=== PATIENT | male | born 2005 | race Caucasian/White ===

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

== ENCOUNTER 2024-06-09 13:05 | Outpatient (RCR) | payer MEDICAID, SELFPAY ==
--- NOTE | 2024-06-15 09:39 | HMH.SLDYSPHA ---
Speech & Language Evaluation Speech/Language Dysphagia Evaluation Start: 06/15/24 09:29 Freq: ONCE Status: Active Protocol: Document 06/09/24 15:50 JAMES (Rec: 06/15/24 09:39 MSTJORGE Laptop) Dysphagia Assess/Goals/Plan Assessment Date of Evaluation: 06/09/24 Evaluation Type Initial Certification Assessment/Problems dysphagia per MD order Does Patient Qualify for Service Yes Qualify/Failure Comment Based on clinical observations made throughout assessment and caregiver interview, Shara would benefit from skilled speech therapy services to address motor speech and language deficits in order to effectively communicate his thoughts and ideas across multiple settings and environments. Mastication /manipulation of bolus and swallowing appear to be WFL. Recommendations PHYSICIAN CERTIFICATION: The specified therapy services are required, authorized, and reviewed every 30 days. Pt will be seen # times/week 1 for # weeks 12 Diet Recommendations Normal Liquid Type Recommendations Normal/Thin SL Swallow Guidelines Alt bite w/sip thru meal, Standard Aspiration Prec.,Eat at slow rate Dysphagia Swallow Precautions/Strategies Sitting Upright (90 deg),Small Bites and Sips,Alternate Liquids/Solids Additional Consults Recommended Other Comment Pt would benefit from GI consult 2' globus sensation reports and ENT 2' mother reporting throat swelling/ discomfort. Plan Anticipate reaching STG in # weeks 8 Anticipate reaching LTG in # weeks 12 Pt/Guardian verbally ack understanding Yes of dx/prognosis/goals G -code Required No STG-Other Comment/Non-Specific Pt will complete further evaluation to assess expressive/receptive language and motor speech skills. Education Instructions provided ORTHOTIC AIDE discussed evaluation results and need for further assessment, as well as POC with pt and CG both of which expressed understanding. Pt/Caregiver able to recall information Able to recall/restate Reinforcement needed No Speech & Language HPI History Present Illness Description of Patient Problem Mother accompanied pt and provided limited hx. She reports pt has no primary means of communication aside from her at this time. He previously received speech therapy services in the school system, but no device had been given. Hearing Hearing Ability Use of Hearing Aid Vision Visual Difficulty Impaired Language [place] Lang/Spoken in Home Mont[place]grin General Information General Current Food Consistancy Regular,Thin Liquids Dentition Good Dentition Oxygen Status Room Air Ability to Follow Directions Good Communication Ability Moderate Impairment Dysphagia:Food Presentation Evaluation Food Type Pureed,Mechanical Soft,Regular ,Liquid,Pudding,Other Dysphagia Evaluation Summary ORTHOTIC AIDE presented following foods: thin water, pudding, applesauce, mahnaz cracker, nutrigrain bar, soft baked cookie, hamburger kenneth, broccoli casserole, roll, and diced sweet potato. He was able to trial all presented food items and demonstrated adequate mastication/ manipulation of bolus across all consistencies. No overt s/ sxs of aspiration were noted. Pt is observed to require further assessment of motor speech skills and language skills 2' presentation observed in the clinical setting and his limited verbal output. Mother reports he is dependent on her often to communicate his wants/needs. Stroke Dysphagia Assessment PHYSICIAN CERTIFICATION: I certify the specified therapy services for Marielos Ansari are required, authorized, and reviewed every 30 days.
== END 2024-06-09 23:59 | disposition home or self-care (01) ==
LOC: ST 13:05
PROVIDERS: Visit Provider Nurse Practitioner Family
DX: R13.10 Dysphagia, unspecified (principal)
CPT/HCPCS: 92610

== ENCOUNTER 2024-11-01 16:24 | Emergency (ER) | payer MEDICAID, SELFPAY ==
[2024-11-01 16:34] VITALS: BP 116/69; PULSE 78; RESP 16; TEMP 37.6; O2SAT 100; BMI 21.2
[2024-11-01 16:45] LABS: Coronavirus 19, PCR Not Detected (NotDetected); Influenza B, PCR Not Detected (NotDetected)
[2024-11-01 16:56] LABS: Strep Scrn Group A (Rapid) Negative (Negative)
[2024-11-01 17:18] LABS: Influenza A, PCR Detected (NotDetected)
[2024-11-01 17:26] VITALS: BP 114/75; PULSE 85; RESP 18; TEMP 37.9; O2SAT 98
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
[2024-11-01] MEDS: DEXAMETHASONE 4MG/ML 1ML VIAL 10 MG IM (17:53)
[2024-11-01 17:54] VITALS: BP 108/57; PULSE 99; RESP 20; TEMP 37.7; O2SAT 94
== END 2024-11-01 17:55 | disposition home or self-care (01) ==
PROVIDERS: Emergency Provider Emergency Medicine; PCP Family Medicine
DX: J11.1 Influenza due to unidentified influenza virus with other respiratory manifestations (principal); R07.9 Chest pain, unspecified; R05.9 Cough, unspecified; Z20.828 Contact with and (suspected) exposure to other viral communicable diseases
CPT/HCPCS: 87430; 87636; 96372; 99283; J1100

== ENCOUNTER 2025-03-18 11:45 | Outpatient (CLI) | payer MEDICAID, SELFPAY ==
--- OUTSIDE RECORDS SUMMARY | 2004-07-25 01:00 | XMS_ITS | Encounter Summary ---
Author Organization [facility] Address [address] [place] [address] Care Team Providers Care Grocery Specialist Name Role Phone Unavailable Primary Care Provider Unavailabl e Encounter Details Date Type Department Care Team (Late st Contact Info) Description 2004 Hospital Encounter [facility] Division of Cardiology [address] [place] [phone] Social History Tobacco Use Types Packs/Day Years Used Date Smoking Tobacco: Never Smokeless Tobacco: Never Intimate Partner Violence Answer Date R ecorded If you are in a relationship , do you feel safe in that relationship? Yes 12/04/2024 If you are in a relationship , do you feel safe in that relationship? No 12/04/2024 Financial Resource Strain Answer Date R ecorded Financial benefits problems Not on file 09/2022 Trouble paying for things you need Not on file 12/25/2022 Trouble paying for things you need (Other) Not o n file 12/25/2022 Safety and Environment Answer Date Kehinde rded Do you have any concerns of physical abuse, sexual abuse, or neglect of your child? No 12/04/2024 Is an adult hurting you or your family? Not on f ile 12/04/2024 Has someone ever touched you in a sexual way that was not ok with you? Not on file 12/04/2024 Is someone hurting your or your family? No 12/04/2024 Historical abuse worry Not on file If you have firearms in the home, are they all in locked storage AND unloaded? Not on file 12/04/2024 Sex and Gender Information Value Date Recorded Sex Assigned at Not on file Legal Sex Male 5:16 AM EST Gender Identity Not on file Sexual Orientation Not on file documented as of this encounter Procedure Notes * Edt, Audit [place] - 02/05/2011 10:14 AM EDT documented in this encounter Miscellaneous Notes * Results - Edt, Audit [place] - 02/05/2011 10:15 AM EDT * Growth Charts - Edt, Audit [place] - 02/05/2011 10:14 AM EDT * Consent Other - Edt, Audit [place] - 02/05/2011 10:11 AM EDT documented in this encounter Plan of Treatment Upcoming Encounters Date Type Department Care Team (Late st Contact Info) Description 03/31/2025 10:00 AM EDT Appointment [facility] Division of Audiology [address] [place] [phone] Audiology, [facility] Tania Escobar, Kayden Discharge Disposition: Home or Self Care documented as of this encounter Visit Diagnoses Not on filedocumented in this encounter Additional Health Concerns Infection Onset Date Last Indicated Resolved Time COVID-19 Rule Out 02/14/2021 02/14/2021 02/14/2021 11:41 AM EDT documented as of this encounter
--- OUTSIDE RECORDS SUMMARY | 2004-07-25 01:00 | XMS_ITS | Encounter Summary ---
Author Organization [facility] Address [address] [place] [address] Care Team Providers Care Night Warehouse Manager Name Role Phone Unavailable Primary Care Provider Unavailabl e Encounter Details Date Type Department Care Team (Late st Contact Info) Description 2004 Hospital Encounter [facility] Division of Pediatric Surgery [address] [place] [phone] Social History Tobacco Use Types Packs/Day [...] on file documented as of this encounter Consult Notes * Edt, Audit [place] - 02/04/2011 3:00 PM EDT documented in this encounter Miscellaneous Notes * Results - Edt, Audit [place] - 02/05/2011 10:13 AM EDT * Consent Other - Edt, Audit [place] - 02/05/2011 10:11 AM EDT documented in this encounter Plan of Treatment Upcoming Encounters Date Type Department Care Team (Late st Contact Info) Description 03/31/2025 10:00 AM EDT Appointment [facility] Division of Audiology [address] [place] [phone] Audiology, [facility] Tania Escobar, Kayden Discharge Disposition: Home or Self Care documented as of this encounter Visit Diagnoses Not on filedocumented in this encounter Additional Health Concerns Infection Onset Date Last Indicated Resolved Time COVID-19 Rule Out 02/14/2021 02/14/2021 02/14/2021 11:41 AM EDT documented as of this encounter
--- OUTSIDE RECORDS SUMMARY | 2004-09-28 01:00 | XMS_ITS | Encounter Summary ---
Author Organization [facility] Address [address] [place] [address] Care Team Providers Care Bearing Machine Operator Name Role Phone Unavailable Primary Care Provider Unavailabl e Encounter Details Date Type Department Care Team (Late st Contact Info) Description 2004 Hospital Encounter [facility] [place] Division of Neurology [address] [place] [phone] Social History Tobacco Use Types Packs/Day Years [...] on file documented as of this encounter Miscellaneous Notes * Growth Charts - Edt, Audit [place] - 2004 11:30 AM EST * PHOTO - Edt, Audit [place] - 2004 10:29 AM EST documented in this encounter Plan of Treatment Upcoming Encounters Date Type Department Care Team (Late st Contact Info) Description 03/31/2025 10:00 AM EDT Appointment [facility] [place] Division of Audiology [address] [place] [phone] Audiology, [facility] Tania Escobar, Kayden Discharge Disposition: Home or Self Care documented as of this encounter Visit Diagnoses Not on filedocumented in this encounter Additional Health Concerns Infection Onset Date Last Indicated Resolved Time COVID-19 Rule Out 02/14/2021 02/14/2021 02/14/2021 11:41 AM EDT documented as of this encounter
--- OUTSIDE RECORDS SUMMARY | 2004-11-02 01:00 | XMS_ITS | Encounter Summary ---
Author Organization [facility] Address [address] [place] [address] Care Team Providers Care Hot Wire Glass Tube Cutter Name Role Phone Unavailable Primary Care Provider Unavailabl e Encounter Details Date Type Department Care Team (Late st Contact Info) Description 2004 Hospital Encounter [facility] Division of Pediatric General and Thoracic Surgery [address] [place] [phone] Social History Tobacco Use Types Packs/Day [...] 12/04/2024 Historical abuse worry Not on file 04/11/202 5 If you have firearms in the home, are they all in locked storage AND unloaded? Not on file 12/04/2024 Sex and Gender Information Value Date Recorded Sex Assigned at Not on file Legal Sex Male 5:16 AM EST Gender Identity Not on file Sexual Orientation Not on file documented as of this encounter Plan of Treatment Upcoming Encounters Date Type Department Care Team (Late st Contact Info) Description 03/31/2025 10:00 AM EDT Appointment [facility] Division of Audiology [address] [place] [phone] Audiology, [facility] Tania Escoabr, Kayden Discharge Disposition: Home or Self Care documented as of this encounter Visit Diagnoses Not on filedocumented in this encounter Additional Health Concerns Infection Onset Date Last Indicated Resolved Time COVID-19 Rule Out 02/14/2021 02/14/2021 02/14/2021 11:41 AM EDT documented as of this encounter
--- OUTSIDE RECORDS SUMMARY | 2004-12-19 | XMS_ITS | Encounter Summary ---
Author Organization [facility] Address [address] [place] [address] Care Team Providers Care Pre Sales Technical Consultant Name Role Phone Unavailable Primary Care Provider Unavailabl e Encounter Details Date Type Department Care Team (Late st Contact Info) Description 2004 Hospital Encounter [facility] Division of Cardiology [address] [place] [phone] Social History Tobacco Use Types Packs/Day [...] EDT Appointment [facility] Division of Audiology [address] [place] [phone] Audiology, [facility] Tania Escobar, Kayden Discharge Disposition: Home or Self Care documented as of this encounter Visit Diagnoses Not on filedocumented in this encounter Additional Health Concerns Infection Onset Date Last Indicated Resolved Time COVID-19 Rule Out 02/14/2021 02/14/2021 02/14/2021 11:41 AM EDT documented as of this encounter
--- OUTSIDE RECORDS SUMMARY | 2005-05-22 | XMS_ITS | Encounter Summary ---
Author Organization [facility] Address [address] [place] [address] Care Team Providers Care Smooth Plater Name Role Phone Unavailable Primary Care Provider Unavailabl e Encounter Details Date Type Department Care Team (Late st Contact Info) Description 05/22/2005 Hospital Encounter [facility] Division of Neurology [address] [place] [phone] Social History Tobacco Use Types Packs/Day [...] Info) Description 03/31/2025 10:00 AM EDT Appointment [facility] Division of Audiology [address] [place] [phone] Audiology, [facility] Tania Escobar, Kayden Discharge Disposition: Home or Self Care documented as of this encounter Visit Diagnoses Not on filedocumented in this encounter Additional Health Concerns Infection Onset Date Last Indicated Resolved Time COVID-19 Rule Out 02/14/2021 02/14/2021 02/14/2021 11:41 AM EDT documented as of this encounter
--- OUTSIDE RECORDS SUMMARY | 2005-06-19 | XMS_ITS | Encounter Summary ---
Author Organization [facility] Address [address] [place] [address] Care Team Providers Care Circulation Assistant Name Role Phone Unavailable Primary Care Provider Unavailabl e Encounter Details Date Type Department Care Team (Late st Contact Info) Description 06/19/2005 Hospital Encounter [facility] Division of Neurology [address] [place] [phone] Social History Tobacco Use Types Packs/Day [...] Info) Description 03/31/2025 10:00 AM EDT Appointment [facility] Division of Audiology [address] [place] [phone] Audiology, [facility] Tania Escobar, Kayden Discharge Disposition: Home or Self Care documented as of this encounter Visit Diagnoses Not on filedocumented in this encounter Additional Health Concerns Infection Onset Date Last Indicated Resolved Time COVID-19 Rule Out 02/14/2021 02/14/2021 02/14/2021 11:41 AM EDT documented as of this encounter
--- OUTSIDE RECORDS SUMMARY | 2005-08-16 01:00 | XMS_ITS | Encounter Summary ---
Author Organization [facility] Address [address] [place] [address] Care Team Providers Care Penciller Name Role Phone Unavailable Primary Care Provider Unavailabl e Encounter Details Date Type Department Care Team (Late st Contact Info) Description 08/16/2005 Hospital Encounter [facility] Department of Radiology [address] [place] [phone] Social History Tobacco Use Types Packs/Day Years [...] Info) Description 03/31/2025 10:00 AM EDT Appointment [facility] Division of Audiology [address] [place] [phone] Audiology, [facility] Tania Escobar, Kayden Discharge Disposition: Home or Self Care documented as of this encounter Visit Diagnoses Not on filedocumented in this encounter Additional Health Concerns Infection Onset Date Last Indicated Resolved Time COVID-19 Rule Out 02/14/2021 02/14/2021 02/14/2021 11:41 AM EDT documented as of this encounter
--- OUTSIDE RECORDS SUMMARY | 2005-09-07 01:00 | XMS_ITS | Encounter Summary ---
Author Organization [facility] Address [address] [place] [address] Care Team Providers Care Plant Taxonomy Teacher Name Role Phone Unavailable Primary Care Provider Unavailabl e Encounter Details Date Type Department Care Team (Late st Contact Info) Description 09/07/2005 Hospital Encounter [facility] Department of Radiology [address] [place] [phone] Social History Tobacco Use Types Packs/Day [...] Info) Description 03/31/2025 10:00 AM EDT Appointment [facility] Division of Audiology [address] [place] [phone] Audiology, [facility] Tania Escobar, Kayden Discharge Disposition: Home or Self Care documented as of this encounter Visit Diagnoses Not on filedocumented in this encounter Additional Health Concerns Infection Onset Date Last Indicated Resolved Time COVID-19 Rule Out 02/14/2021 02/14/2021 02/14/2021 11:41 AM EDT documented as of this encounter
--- OUTSIDE RECORDS SUMMARY | 2005-09-27 01:00 | XMS_ITS | Encounter Summary ---
Author Organization [facility] Address [address] [place] [address] Care Team Providers Care Senior Treasury Consultant Name Role Phone Unavailable Primary Care Provider Unavailabl e Encounter Details Date Type Department Care Team (Late st Contact Info) Description 09/27/2005 Hospital Encounter [facility] Department of Radiology [address] [place] [phone] Social History Tobacco Use Types Packs/Day [...] 03/31/2025 10:00 AM EDT Appointment [facility] Division of Audiology [address] [place] [phone] Audiology, [facility] Tania Escobar, Kayden Discharge Disposition: Home or Self Care documented as of this encounter Visit Diagnoses Not on filedocumented in this encounter Additional Health Concerns Infection Onset Date Last Indicated Resolved Time COVID-19 Rule Out 02/14/2021 02/14/2021 02/14/2021 11:41 AM EDT documented as of this encounter
--- OUTSIDE RECORDS SUMMARY | 2006-01-08 | XMS_ITS | Encounter Summary ---
Author Organization [facility] Address [address] [place] [address] Care Team Providers Care Investor Relations Associate Name Role Phone Unavailable Primary Care Provider Unavailabl e Encounter Details Date Type Department Care Team (Late st Contact Info) Description 01/08/2006 Hospital Encounter [facility] Division of Pediatric Otolaryngology [address] [place] [phone] Social History Tobacco Use Types Packs/Day [...] Info) Description 03/31/2025 10:00 AM EDT Appointment [facility] Division of Audiology [address] [place] [phone] Audiology, [facility] Tania Escobar, Kayden Discharge Disposition: Home or Self Care documented as of this encounter Visit Diagnoses Not on filedocumented in this encounter Additional Health Concerns Infection Onset Date Last Indicated Resolved Time COVID-19 Rule Out 02/14/2021 02/14/2021 02/14/2021 11:41 AM EDT documented as of this encounter
--- OUTSIDE RECORDS SUMMARY | 2006-02-07 | XMS_ITS | Encounter Summary ---
Author Organization [facility] Address [address] [place] [address] Care Team Providers Care Manager Distribution Name Role Phone Unavailable Primary Care Provider Unavailabl e Encounter Details Date Type Department Care Team (Late st Contact Info) Description 02/07/2006 Hospital Encounter [facility] Division of Audiology [address] [place] [phone] Social History Tobacco Use Types Packs/Day [...] Info) Description 03/31/2025 10:00 AM EDT Appointment [facility] Division of Audiology [address] [place] [phone] Audiology, [facility] Tania Escobar, Kayden Discharge Disposition: Home or Self Care documented as of this encounter Visit Diagnoses Not on filedocumented in this encounter Additional Health Concerns Infection Onset Date Last Indicated Resolved Time COVID-19 Rule Out 02/14/2021 02/14/2021 02/14/2021 11:41 AM EDT documented as of this encounter
--- OUTSIDE RECORDS SUMMARY | 2006-02-08 | XMS_ITS | Encounter Summary ---
Author Organization [facility] Address [address] [place] [address] Care Team Providers Care Playground Equipment Erector Name Role Phone Unavailable Primary Care Provider Unavailabl e Encounter Details Date Type Department Care Team (Late st Contact Info) Description 02/08/2006 Hospital Encounter [facility] Division of Pediatric General and Thoracic Surgery [address] [place] [phone] Social History Tobacco Use Types Packs/Day [...] Info) Description 03/31/2025 10:00 AM EDT Appointment [facility] Division of Audiology [address] [place] [phone] Audiology, [facility] Tania Escobar, aKyden Discharge Disposition: Home or Self Care documented as of this encounter Visit Diagnoses Not on filedocumented in this encounter Additional Health Concerns Infection Onset Date Last Indicated Resolved Time COVID-19 Rule Out 02/14/2021 02/14/2021 02/14/2021 11:41 AM EDT documented as of this encounter
--- OUTSIDE RECORDS SUMMARY | 2006-03-11 | XMS_ITS | Encounter Summary ---
Author Organization [facility] Address [address] [place] [address] Care Team Providers Care Dumping Machine Operator Name Role Phone Unavailable Primary Care Provider Unavailabl e Encounter Details Date Type Department Care Team (Late st Contact Info) Description 03/11/2006 Hospital Encounter [facility] Division of Audiology [address] [place] [phone] Social History Tobacco Use Types Packs/Day [...] Description 03/31/2025 10:00 AM EDT Appointment [facility] Division of Audiology [address] [place] [phone] Audiology, [facility] Tania Escobar, Kayden Discharge Disposition: Home or Self Care documented as of this encounter Visit Diagnoses Not on filedocumented in this encounter Additional Health Concerns Infection Onset Date Last Indicated Resolved Time COVID-19 Rule Out 02/14/2021 02/14/2021 02/14/2021 11:41 AM EDT documented as of this encounter
--- OUTSIDE RECORDS SUMMARY | 2006-03-15 | XMS_ITS | Encounter Summary ---
Author Organization [facility] Address [address] [place] [address] Care Team Providers Care Qa Automation Developer Name Role Phone Unavailable Primary Care Provider Unavailabl e Encounter Details Date Type Department Care Team (Late st Contact Info) Description 03/15/2006 Hospital Encounter [facility] Department of Radiology [address] [place] [phone] Social History Tobacco Use Types Packs/Day [...] Info) Description 03/31/2025 10:00 AM EDT Appointment [facility] Division of Audiology [address] [place] [phone] Audiology, [facility] Tania Escobar, Kayden Discharge Disposition: Home or Self Care documented as of this encounter Visit Diagnoses Not on filedocumented in this encounter Additional Health Concerns Infection Onset Date Last Indicated Resolved Time COVID-19 Rule Out 02/14/2021 02/14/2021 02/14/2021 11:41 AM EDT documented as of this encounter
--- OUTSIDE RECORDS SUMMARY | 2006-04-30 | XMS_ITS | Encounter Summary ---
Author Organization [facility] Address [address] [place] [address] Care Team Providers Care Self Pay Representative Name Role Phone Unavailable Primary Care Provider Unavailabl e Encounter Details Date Type Department Care Team (Late st Contact Info) Description 04/30/2006 Hospital Encounter [facility] Division of Pediatric General and Thoracic Surgery [address] [place] [phone] Social History Tobacco Use Types Packs/Day [...] as of this encounter Miscellaneous Notes * Operative Report - Timmy Geronimo M.D. - 04/30/2006 12:09 PM EDTDATE OF OPERATION: 04/30/2006 SURGEON(S): Timmy Geronimo M.D./Joao Coats D.O. PREOPERATIVE DIAGNOSIS: Chronic otitis media with effusion. POSTOPERATIVE DIAGNOSIS: Chronic otitis media with effusion. ANESTHESIA: General via mask. ESTIMATED BLOOD LOSS: None. SPECIMENS: None. COMPLICATIONS: None. DRAINS: None. OPERATION PERFORMED: Bilateral myringotomy with PE tube placement. INDICATIONS: Marielos is a 1-year-old male with a history of chronic otitis media with effusion. He had been seen by Dr. Geronimo in the clinic. He has had persistent effusion in his bilateral middle ear space. After discussion of the risks between the attending surgeon and the parents, it was decided to proceed to the OR for bilateral myringotomy with PE tube placement. Informed consent was obtained. FINDINGS: Bilateral serous middle ear effusion. PROCEDURE: After informed consent, the patient was taken to the operating room and placed in the supine position. General anesthesia was induced after appropriate monitors were placed. The airway was established using a mask airway. Attention was then directed toward the right ear. The ear canal was cleaned under the operating microscope. A radially-oriented myringotomy incision was made in the anterior inferior quadrant. If fluid was present, it was removed. The appropriate grommet PE tube was then placed without difficulty. A similar procedure and findings were noted on the left. Antibiotic drops were placed if fluid or bleeding was present. The patient tolerated the procedure well. There were no complications. The blood loss was minimal. Fluids during the case were minimal. Timmy Geronimo MD Signed via Electronic Authentication by: Timmy Geronimo MD 05/06/2006 14:06 JAVIER/lisa Terrell: 04/30/2006 12:09 P A Doc #[id number] cc: Timmy Geronimo MD *Joao Diaz D.O. [address] [place], [place] [id number] documented in this encounter Plan of Treatment Upcoming Encounters Date Type Department Care Team (Late st Contact Info) Description 03/31/2025 10:00 AM EDT Appointment [facility] Division of Audiology [address] [place] [phone] Audiology, [facility] Tania Escobar AuD Discharge Disposition: Home or Self Care documented as of this encounter Visit Diagnoses Not on filedocumented in this encounter Additional Health Concerns Infection Onset Date Last Indicated Resolved Time COVID-19 Rule Out 02/14/2021 02/14/2021 02/14/2021 11:41 AM EDT documented as of this encounter
--- OUTSIDE RECORDS SUMMARY | 2006-06-18 | XMS_ITS | Encounter Summary ---
Author Organization [facility] Address [address] [place] [address] Care Team Providers Care Quality Assurance Assistant Name Role Phone Unavailable Primary Care Provider Unavailabl e Encounter Details Date Type Department Care Team (Late st Contact Info) Description 06/18/2006 Hospital Encounter [facility] Division of Pediatric Otolaryngology [address] [place] [phone] Social History Tobacco Use Types Packs/Day [...] Info) Description 03/31/2025 10:00 AM EDT Appointment [facility] Division of Audiology [address] [place] [phone] Audiology, [facility] Tania Escobar, Kayden Discharge Disposition: Home or Self Care documented as of this encounter Visit Diagnoses Not on filedocumented in this encounter Additional Health Concerns Infection Onset Date Last Indicated Resolved Time COVID-19 Rule Out 02/14/2021 02/14/2021 02/14/2021 11:41 AM EDT documented as of this encounter
--- OUTSIDE RECORDS SUMMARY | 2007-05-23 | XMS_ITS | Encounter Summary ---
Author Organization [facility] Address [address] [place] [id number] Care Team Providers Care Digital Cartographic Technician Name Role Phone Unavailable Primary Care Provider Unavailabl e Encounter Details Date Type Department Care Team (Late st Contact Info) Description 05/23/2007 Hospital Encounter [facility] Division of Pediatric Otolaryngology [address] [place] [phone] Social History Tobacco Use Types Packs/Day [...] 03/31/2025 10:00 AM EDT Appointment [facility] Division of Audiology [address] [place] [phone] Audiology, [facility] Tania Escobar, Kayden Discharge Disposition: Home or Self Care documented as of this encounter Visit Diagnoses Not on filedocumented in this encounter Additional Health Concerns Infection Onset Date Last Indicated Resolved Time COVID-19 Rule Out 02/14/2021 02/14/2021 02/14/2021 11:41 AM EDT documented as of this encounter
--- OUTSIDE RECORDS SUMMARY | 2025-02-09 08:15 | XMS_ITS | Encounter Summary ---
Author Organization [facility] Address [address] [place] [address] Care Team Providers Care Lighting Engineer Name Role Phone Rock Bustos M.D. Primary Care Provider [phone] Reason for Visit * Reason Comments AT AAC Evaluation Encounter Details Date Type Department Care Team (Late st Contact Info) Description 02/09/2025 8:15 AM EDT Therapy Visit [facility] [address] [place] [id number] Daniela Matos M.D. [facility] [address] [place] [address] [place] [phone] Natalie Hamlin OTR/L AT [facility] Evaluation Discharge Disposition: Home or Self Care Social History Tobacco Use Types Packs/Day Years [...] on file documented as of this encounter Progress Notes * Natalie Hamlin, OTR/L - 02/09/2025 8:15 AM EDT OT Plan of Care [facility] therapy services plan of care is developed in coordination with the International Classification of Functioning, Disability and Health (ICF) framework, including: Body Structure & Function: Strengthen body and mind to build capacity for maximum participation Participation: Develop competencies required to engage in meaningful activities and interactions with family and peers at home, at school and in the community Environment: Optimize access to play, education, community and family life through adaptations and technology Goal Area: positioning equipment & access Start Date Status Date Met NICOLE Olmedo will participate in AAC trials as needed to determine optimal setup, vision support, and access for AAC strategies/device to meet basic communication needs. 02/09/25 Shara moved his face close to the Via Pro and occasionally moved his glasses out of the way. STG - STG - STG - STG - Goal Area: sensory STG - STG - STG - STG - STG - Goal Area: self-help (ADL's, feeding, socialization) STG - STG - STG - STG - STG - Goal Area: caregiver education NICOLE Olmedo's caregiver will be educated on features, language program, editing, and use of SGDs during trials, as needed to determine final SGD recommendations. 02/09/25 Shara's mother feels he should have a wheelchair mount though he does not currently have awheelchair. STG - STG - STG - STG - OCCUPATIONAL THERAPY EVALUATION Date of Assessment: 02/09/2025 Service: individual 75 minutes and total treatment time 75 minutes Treatment Type: Occupational Therapy evaluation Treatment Diagnoses: ICD-10-CM 1. Impaired mobility and ADLs Z74.09 Z78.9 2. Fine motor delay F82 PATIENT HISTORY AND OCCUPATIONAL PROFILE Shara is a 19 y.o. male who is referred for occupational therapy services to evaluate for abilities as they relate to functional communication and use of a communication system. He attended the evaluation with his mother who provided pertinent information and medical history. Patient's mother reported concerns with performance and participation in the following areas of occupation: access to communication. Medical History: Shara's medical history was reviewed via chart review and caregiver interview. See medical recordsfor full review. No history on file. 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, pt was smaller of the two Unspecified hearing loss Past Surgical History: Procedure Laterality Date HX EAR EXAM UNDER ANESTHESIA (EUA) Bilateral 02/14/2021 with cerumen debridement ABR Bilateral 02/14/2021 HX DENTAL REHABILITATION 1 N/A 02/14/2021 HX EAR EXAM UNDER ANESTHESIA (EUA) Bilateral 04/13/2016 ABR Bilateral 04/13/2016 TONSILLECTOMY AND ADENOIDECTOMY N/A 04/12/2011 HX TYMPANOMASTOIDECTOMY Left 03/26/2008 WITH MUSCULAR RECONSTRUCTION AND FASCIA GRAFT HX EAR EXAM UNDER ANESTHESIA (EUA) Right 03/26/2008 WITH PAPER PATCH HX HERNIA INGUINAL REPAIR Allergies: Penicillin g benzathine [bicillin l-a] Medications: Shara has a current medication list which includes the following prescription(s): acetaminophen, albuterol, ferrous sulfate, pediatric multivitamins-fl, and see information below regarding this order. Current Medical Team: Rehab, Neurology, ENT, Audiology School and Therapy History (Type, Name, Frequency): OT: none PT: none WIND FIELD SERVICE MANAGER: none School, Grade, Investigations Chief: Graduated from high school, volunteers Environment and Psychosocial: Lives in: 1 story house Lives with: mother and twin brother Other info: father comes in town from working occasionally Play and Interests: Raises chickens, plans give aways for kids and other people Equipment: Shara arrived to the [facility] transport chair. Equipment Vendor: [employer] Equipment Therapists: Jeremy Wheelchairs, Strollers, and Transport Chairs: Type of Wheelchair(s) Age of Wheelchair Upcoming Changes to the Wheelchair or Seating Places Used Times/Days Used None- in need Are there upcoming surgeries or other events that will change how or what wheelchair or seating they use? No. Needs a wheelchair Home Positioning Equipment: Type/Name of Equipment Times/Days Used Comments Uses a rolling chair around the house Consider a table or floor mount if they don't use their wheelchair much at home, or use multiple things throughout the day. Any equipment needs identified: yes -- power wheelchair, bath chair, bed [place] to be considered during trials: Clamp-on mount - frame to be determined Assistive Technology (Current/Previous): Augmentative Communication: has had a Proslate in the past Computer Access: has an android phone. Mom is not sure what he does on it but finds that he plays [employer] and goes on [employer] Other: ASSESSMENT OF OCCUPATIONAL PERFORMANCE Appearance/Behavior; Tolerance to Visit: good Signs of Distress: no Motor Function (range of motion, tone, active movement): Motor function (range of motion, tone active motion) Shara presents with abnormal muscle tone, though he is able to participate in a lot of functional activities. Range of motion in both upper extremities is decreased. Shara demonstrates left hand dominance, but demonstrated targeted reaching with both of his upper extremities upper extremities. Hewas able to isolate either index finger as needed for access of small cells or buttons on all SGD???s trialed. His range of motion and strength was functional to access targets in all quadrants on the SGD???s trialed, and to consistently activate desired cells. When using 11 size screen on a SGD, he was able to access with an isolated index finger with good accuracy. He was able to accurately and efficiently access targets as small as 1/2 inch square in size, from a field of 64 to as many as 64 buttons per page on small screen SGD???s trialed. Mobility Status Marielos Olmedo Cotyoralia Olmedo ambulates with difficulty and requires a wheelchair for most distances. Due to difficulties with getting proper referrals, Shara's previous power wheelchair didnot get delivered to him and eventually was returned. He doesn't currently have a manual or power wheelchair and gets around with transport chairs when at the hospital, Jill's carts when at the store and a rolling chair at home. He uses a cane for some of his mobility. Integration of Mobility and Positioning with the SGD Due to Shara???s dependence on a wheelchair for his primary positioning and mobility, he requires a wheelchair mount for stable and consistent positioning of the recommended speech generating device, in order to provide optimal setup, for best visual and physical access to communication across allenvironments. Motor Function Tone: dystonia Range of Motion: decreased active range of motion in his upper bilateral extremities with moderate deficits in functionality Strength: impaired motor control and general weakness Hand Use: left handed Posture and Positioning Type of Seating: adult-size chair Amount of Positioning Support Needed: minimal support for access Mobility Status Mobility: utilizes with a cane for mobility around the environment [place] for Mobility: independently drives a power wheelchair and needs assistance to walk AAC Transport/Set Up: unable to carry objects and needs access to mounting Access Method: Direct Select Direct select was determined to be the most appropriate access method for Shara due to independentaccess without external support. With the following set up, Shara was successful to use an SGD forfunctional communication. Size of Screen: tbd Justification for Screen Size: tbd Button Size: tbd Field Size: TBD Accessibility of Screen: functional movement to access all quadrants Visual Ability: Shara has a history of visual acuity within functional limits with corrective lenses per caregiver report. He was seen previously for ophthalmology needs. Shara reportedly has astigmatism for which he has glasses prescribed. He does tolerate wearing his glasses often. His last known vision screening was 01/2025. Shara's caregiver note any significant concerns with vision as it relates to his participation in functional daily activities. Last vision exam: .January 2025 at [facility] Diagnoses: Astigmatism Glasses: yes, received new glasses 02/08/25 Functional Vision: functional for most daily activities Sensory Hearing: wears hearing aids on both sides Sensory Processing: no difficulties noted Activities of Daily Living (ADLs): Amount of Assistance need for: Dressing: needs assistance Feeding: feeds himself regular diet Toileting: urinates in the toilet, starting to change himself Bathing/Hygeine: stands holding a bar while mom showers him Sleep: sleeps with cushions to elevate his head Communication: Current communication strategies used include: signs and gestures. Current communication needs include: more access to communication with more partners. Fine Motor: Skills: limited due to muscle tone. Reaching: functional Grasp: immature patterns Bimanual: brings hands to midline, crosses midline with both hands Writing Skills: Can write his first name Handedness: left Access Assessment: Visit # Device Used Page Set Access Method Dwell Time Pros Cons 1 Via Pro TouchChat WP 64 Direct Had a good sized vocabulary Seemed to have a little trouble finding what he was looking for. CLINICAL DECISION MAKING: Shara is a 19 y.o. male. The primary encounter diagnosis was Impaired mobility and ADLs. A diagnosis of Fine motor delay was also pertinent to this visit. An expanded review of his medical record was performed with patient history significant for relevant co-morbidities of visual deficits and autism that will impact patient's plan of care by impeding their ability to maintain maximal function for condition. During today's evaluation he presented with performance deficits of: Feeding participation limited by muscle tone, coordination, oral motor skills, fine motor function,and access to communication Play/leisure participation limited by muscle tone, balance, posture, fine motor function, and visual skills Social participation limited by oral motor skills and access to communication Communication management participation limited by muscle tone, coordination, oral motor skills, fine motor function, graphomotor function, visual skills, and access to communication The data from today's evaluation was problem-focused, Shara required minimal/moderate modificationof or assistance with tasks, and has several treatment options available to him as indicated below in the recommendation section. Clinical decision making for this evaluation was moderately complex. The extent of Shara's problems currently interferes with his attainment of independence in occupational performance. Without skilled intervention, Shara may be at risk for further decline in occupational performance skills. Summary/Recommendations: Shara is a 19 y.o. male with a diagnosis of Cerebral Palsy (G80.9). His motor difficulties interfere with his interaction within his environment. Continue with scheduled AAC sessions documented in this encounter Plan of Treatment Upcoming Encounters Date Type Department Care Team (Late st Contact Info) Description 03/31/2025 10:00 AM EDT Appointment [facility] Division of Audiology [address] [place] [phone] Audiology, [facility] Tania Escobar AuD Discharge Disposition: Home or Self Care documented as of this encounter Visit Diagnoses Diagnosis Impaired mobility and ADLs- Primary Mechanical problems with limbs Fine motor delay Other specified delay in development documented in this encounter Care Teams Lighting Engineer Relationship Specialty Start Date End Date Rock Bustos M.D. [address], [place] [id number] PCP - General External Family Practice 03/02/16 documented as of this encounter
--- OUTSIDE RECORDS SUMMARY | 2025-02-09 08:15 | XMS_ITS | Encounter Summary ---
Author Organization [facility] Address [address] [place] [address] Care Team Providers Care Insurance Adviser Name Role Phone Rock Bustos M.D. Primary Care Provider [phone] Reason for Visit * Reason Comments AT [facility] Treatment/Trials Encounter Details Date Type Department Care Team (Late st Contact Info) Description 02/09/2025 8:15 AM EDT Therapy Visit [facility] [address] [place] [id number] Daniela Matos M.D. [facility] [address] [place] [address] [address] [place] [address] Paras Holliday CCC-DRIVING TEACHER AT [facility] Treatment/Trials Discharge Disposition: Home or Self Care Social [...] as of this encounter Progress Notes * Paras Holliday, ROSIO-DRIVING TEACHER - 02/09/2025 8:15 AM EDT Patient Name: Marielos Olmedo AT Series Treatment Note-Speech Diagnosis: ICD-10-CM 1. 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 Cerebral palsy, unspecified type G80.9 3. Sensorineural hearing loss, bilateral H90.3 4. Mixed receptive-expressive language disorder F80.2 5. Autism spectrum disorder F84.0 Date of Treatment: 02/09/2025 Service: individual 75 minutes Speech Plan of Care [facility] therapy services plan of care is developed [...] life through adaptations and technology Goal Area: Functional Communication Start Date Status Date Met STG - To determine which AAC system can be used to communicate wants & needs successfully. 02/09/25 STG -To demonstrate ability to take 2-3 successful communicative turns with a conversation partner using an AAC system. 02/09/25 STG- Goal Area: Caregiver Education STG-To make an informed decision on the best AAC system for successful communication 02/09/25 STG- Prognosis: good Progress: See goals above visit Devices Page sets Access method Dwell Time pros cons #1 Via Pro TouchChat WP 60 Direct select Robust vocab Today only used 1 word to communicate-needs practice sentence building #2 #3 #4 Will bring in phone next week-so we can see how he uses it~ Dates Trialed Name of Burton / Page Set Communicative Functions Request Label Answer Ask Social Comment Protest Core Words Misc. / Fringe 02/09/25 Via Pro WP 60 Basic What did you have for breakfast Greetings spelled name on keyboard Next Session: Recommendations: Continue to address Plan of Care for progress toward goals. [facility] SPEECH-LANGUAGE PATHOLOGY EVALUATION Name: Marielos Olmedo Date of Evaluation: 02/08/2025 Date of : 2005 Address: [address] [place] [address] Age: 19years (home) Medical Diagnosis: (G80.9) Cerebral palsy, unspecified type (F84.0) Autism spectrum disorder Referred by: Bola Gomez M.D. DRIVING TEACHER Diagnosis: (R48.8) Other symbolic dysfunctions (primary encounter diagnosis) (F80.2) Mixed receptive-expressive language disorder Licensed DRIVING TEACHER: Paras Holliday MA, [facility]-DRIVING TEACHER Date of Onset: 2005 () Licensed OT: Diagnosis/Prognosis: good Time spent: 90 minutes BACKGROUND INFORMATION Shara is a 19years old male who was seen for an augmentative and alternative communication evaluation (AAC) at the [facility] to evaluate alternative strategies to facilitate communicative independence and to determine candidacy for a speech generating device (SGD). Shara was accompanied throughout the evaluation by his mother. Shara presents with medical diagnosis(es) of cerebral palsy and autism spectrum disorder and speech/language diagnosis(es) of mixed receptive and expressive language disorder and other symbolic dysfunctions. Other significant medical history includes: diagnosis of bilateral sensorineural hearing loss, for which he wears hearing aids. He currently resides at home with his Mother and twin brother.Per parent report, he is currently enrolled in part-time home school education after graduating from [employer] in [place], [place]. Through his current program, Shara does not receivetherapy services. He does not currently receive outpatient therapy services. Shara's primary care p hysician is Rock Bustos M.D. Shara's caregiver reports that he currently communicates via vocalizations, reaching, facial expressions, gestures, signed approximations, yes/no responses, laughing, and crying. At this time, Shara and his caregivers agree that these methods are no longer meeting his expressive communication needs. Shara is demonstrating increased difficulty communicating with familiar and unfamiliar communication partners and may benefit from alternative and augmentative communication to support his communication. COGNITIVE STATUS ASSESSMENT Explain if cognitive status assessment is not warranted N/A. Estimate of developmental and intellectual age or range Amandas developmental and/or intellectual abilities are judged to be impaired when compared to same age peers. Describe method of assessing cognitive status Amandas cognitive status was evaluated via parent/caregiver report, informal assessment measures, clinical observation, performance on tasks presented during evaluation, and review of records. Document consumer???s most recent cognitive assessment (done by DRIVING TEACHER) Amandas cognitive (i.e. attention, memory, problem solving, information processing and executive functioning) and adaptive skills were judged to be mildly delayed as compared to age-matched peers. Regarding memory, Shara demonstrated the ability to recall information presented after a short time delay, recall information after a long time delay, recall location of target items on a SGD, follow complex directions (emerging ability), recognize familiar people, objects and places, participate in routine activities, participate in routines, and repeat a newly learned activity. Regarding problem solving, Shara demonstrated the ability to request help if needed, change communication modes for clarification, and use multi-modal communication. Regarding information processing, Shara rarely required additional time to process information, rarely presented with processing delays, inconsistently was able to complete multi-step directions over a span of time, and occasionally required physical/visual/verbal cues Regarding attention, Shara attended to evaluation tasks for 25 minutes, maintained attention throughout all evaluation tasks, responds to environmental sounds, responds to voices, responds to name, localizes sounds, inspects surroundings, shifts attention from one person/object to another, attendsto speaker, visually attends to objects, and visually attends to pictures. Observed attention is commensurate with family report. Shara demonstrated literacy skills that are delayed. He demonstrated the following: matching letters, identification of name, displays interest in reading activities, turns pages left to right, turns book upright, and attends to pictures when being read to. Based on Shara???s literacy skills, he may require access to a keyboard and text to speech capabilities. Shara demonstrated adequate memory, problem solving, information processing, and attention skills for independent use and management of an appropriate SGD. SENSORY STATUS Explain if sensory status is not warranted N/A. Visual Abilities Shara has a history of visual acuity within functional limits with corrective lenses. His primary caregiver has a history of visual acuity within functional limits with corrective lenses. Informal observation of functional visual performance during the SGD assessment revealed Shara and/or his primary caregiver do not require modifications to use an appropriate SGD effectively and be functional in small group and one to one settings. Auditory Abilities Formal audiologic testing has been completed and a hearing loss was noted. Results revealed the following: moderate-severe bilateral sensorineural hearing loss. Shara is currently receiving new hearing aids, of which Mom reports Shara is a consistent user. Shara's primary caregiver does not havea reported history of hearing impairment. Informal observation of functional listening performance during the SGD assessment revealed that Shara and/or his primary caregiver do not require modifications to use an appropriate SGD effectively and be functional in small group and one to one settings.Shara responded to all auditory input without difficulty and appeared to appropriately discriminate speech and environmental sounds in a quiet listening environment. Informal observation of functional listening performance during the SGD assessment revealed that Shara and his caregiver demonstrate adequate auditory abilities to use an appropriate augmentative communication system effectively. SPEECH, LANGUAGE, AND COMMUNICATION STATUS Specific description of communication disability, including speech diagnosis Shara presents with the following speech/language diagnosis: mixed receptive and expressive language disorder and other symbolic dysfunctions. Shara???s present level of speech and language skills were obtained via informal assessment, caregiver interview, review of records, interactions with the clinician, and computer activities. As the result of his significant speech and language disorder he is largely reliant upon caregivers anticipating his needs. Testing: AAC Genie Evaluation Visual Identification - ability to visually track and identify a single icon Xtra Large 5 FO2 100% Large 4 FO3 100% Large 3 FO4 100% Large 3 FO8 100% Medium 2 FO4 100% Medium 2 FO8 100% Medium 2 FO15 100% Medium 2 FO24 100% Small 1 FO15 100% Small 1 FO32 100% Small 1 FO45 100% ? Visual Discrimination - ability to visually track and discriminate a single icon from other icons Xtra Large 5 FO2 100% Large 4 FO3 100% Large 3 FO4 100% Large 3 FO8 100% Medium 2 FO4 100% Medium 2 FO8 100% Medium 2 FO15 100% Medium 2 FO24 100% Small 1 FO15 100% Small 1 FO32 100% Small 1 FO45 100% ? ? Vocabulary - ability to identify different types of vocabulary items Noun vocabulary 100% Function vocabulary 100% Verb vocabulary 100% Category recognition 100% Word association 100% Adjective vocabulary 90% Language: Kazakh Speech skills and prognosis The structure of Shara???s oral mechanism appeared to be intact and sufficient for speech. Impairments include: none. Control and function of oral structures is judged to be significantly impaired. Impairments include: uncoordinated movements, spasticity, limited vocal or verbal output, difficulty imitating words and phrases, , limited consonant inventory, and limited vowel inventory. Shara's verbal/vocal output is limited to: neutral vowels, occasional whole word verbal approximations via imitation, laughing, and crying. Shara's current means of communication are not sufficient to meet daily functional communication needs. His condition is chronic and stable in nature and his ability to verbally communicate is expected to remain at the present level. Traditional speech and language therapy has been unsuccessful in increasing his verbal abilities toa functional level. Therefore, it is anticipated that natural speech will not be sufficient to meetShara's daily communication needs for the foreseeable future. Language skills: Expressive and Receptive Receptive Language: Shara presents with moderate impairment in receptive language skills. The following receptive language skills were observed or reported: Understands basic concrete commands given within his physical abilities Responds consistently to name Looks at conversational partner during conversation Follows single step directions in structured routines and activities Follows multi-step directions in routines and activities Anticipates some routine turn taking games Responds appropriately to no Visually attends to picture stimuli for an appropriate amount of time Discriminates nouns in pictures Discriminates familiar objects Discriminates verbs in pictures Identifies categories of objects in pictures Comprehends yes/no questions Comprehends choice-making Understands cause/effect Comprehends familiar routines Discriminates familiar people The following receptive language skills were not observed or reported: Understands pronouns Understands negatives in sentences Makes inferences Comprehends wh- questions Overall, Shara???s receptive language skills are judged to be moderately impaired and a relative strength as compared to expressive language skills. Expressive Language: Shara presents with significant impairment in expressive language skills. Shara uses the following communication methods: vocalizations, reaching, facial expressions, gestures, signed approximations, yes/no responses, laughing, and crying. The following expressive language skills were observed orreported: Smiles as someone is speaking Vocalizes to gain attention Imitates words with poor intelligibility Gazes to desired objects Uses signs Uses gestures Indicates yes reponse by nodding and verbal approximation of yeah Indicates no response by facial expression Imitates gestures/signs Imitates actions Expresses feelings Expresses pleasure/displeasure The following expressive language skills were not observed or reported: Produces single words Combines words Vocalizes with mostly vowel sounds. Speaks verbally with poor intelligibility Initiates a conversation with someone Participates in vocal turn-taking Overall, Shara???s expressive language skills are judged to be significantly impaired. Shara???s limited verbal communication prevents him from expressing his wants, needs, and thoughts to others. Given the severity of the communication impairment as described above, Shara is significantly limited in his ability to communicate verbally and requires a reliable AAC system for communication. Social Pragmatic Shara demonstrated use of eye contact, reciprocal smiling, appropriate affect, turn-taking, attention to the speaker, joint attention, gesture use to gain attention, and comprehension of routines. Shara did not demonstrate use of voice to gain attention and differential cries. Communicative acts included greeting, imitating, labeling, requesting, making choices, and answering. Communicative acts did not include calling, rejecting, protesting, initiating routines, performing, denying, describing an event, and predicting. Play Shara demonstrated independent play (i.e., plays by his/her self away from adults), cause and effect (i.e., light toys, pop-up toys, etc), parallel play (plays next to a peer or adult), cooperative play, games and routines (i.e., peek-a-book, kenneth-cake, chasing, sing, dance), functional play (actions with objects; i.e. put phone to ear, push toy car, throw ball), pretend play (i.e., feed baby, pretend to be parent/animal), imitate adult actions (i.e., drive car by steering wheel, water plants, vacuum, type , sweep , etc), reciprocal play (i.e., plays with a peer or adult-rolling a ball back and forth), and symbolic play. Parent Goals Shara's family reported the following priorities regarding improving his communication: Shara's mother reported that she would like him to be able to functionally communicate his wants and needs with family and unfamiliar communication partners. She would like him to be able to use his AAC deviceto communicate effectively with members of the community and more intentionally engage in social interactions. Assistive Technology: AAC devices/equipment/strategies have been previously introduced or used: Shara was engaged in an AAC trial series at the [facility] in 2019, but, per parent report, stopped attending due to the COVID-19 pandemic. He has used a SGD in the past. Shara received a Proslate 10D by [employer] AAC with Touch Chat with Word Power 42 in 2015. Per parent report and review of records, the device was stolen after only 5 months. Shara displays the following skills for use of assistive technology: Cause/Effect and Access Method: direct manual select with index finger. When presented with Touch Chat with Word Power 60, Victor Manueloindependently navigated to play and into sports to select basketball . Mother reported that Shara enjoys going to the park and playing basketball frequently. Additionally, he navigated to want and eat to select a meal for dinner ( sandwich ). documented in this encounter Plan of Treatment Upcoming Encounters Date Type Department Care Team (Late st Contact Info) Description 03/31/2025 10:00 AM EDT Appointment [facility] Division of Audiology [address] [place] [phone] Audiology, [facility] Tania Escobar, AuD Discharge Disposition: Home or Self Care documented as of this encounter Visit Diagnoses Diagnosis Other symbolic dysfunctions- Primary Cerebral palsy, unspecified type Sensorineural hearing loss, bilateral Mixed receptive-expressive language disorder Autism spectrum disorder Autistic disorder, current or active state documented in this encounter Care Teams Insurance Adviser Relationship Specialty Start Date End Date Rock Bustos M.D. [address] [place] [address] PCP - General External Family Practice 03/02/16 documented as of this encounter
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
--- OUTSIDE RECORDS SUMMARY | 2025-02-16 12:45 | XMS_ITS | Encounter Summary ---
Author Organization [facility] Address [address] [place] [address] Care Team Providers Care Scooping Machine Tender Name Role Phone Rock Bustos M.D. Primary Care Provider [phone] Reason for Visit * Reason Comments AT Equipment Evaluation Jeniffer Banda 613 PW C - [employer] Moe KingRaised toilet seat and rails Encounter Details Date Type Department Care Team (Late st Contact Info) Description 02/16/2025 12:45 PM EDT Therapy Visit [facility] [address] [place] [address] Daniela Matos M.D. [facility] [address] [facility] [address] [place] [address] Kasie Hopkins, MOT,OTR/L AT Equipment Evaluation (Jeniffer Solo 613 PWC - [employer] Moe Julian/Raised toilet seat and rails) Discharge Disposition: Home or Self Care Social [...] of this encounter Progress Notes * Kasie Hopkins, CHIN,OTR/L - 02/16/2025 12:45 PM EDT Images from the original note were not included. Name: Marielos Olmedo Date: 02/16/2025 Date of : 2005 Date of Onset: Weight (actual): 48 kg (12/04/2024 10:30 AM) No Data Recorded Medical Diagnosis: ICD-10-CM 1. Other cerebral palsy G80.8 2. Abnormal posture R29.3 3. Muscle weakness M62.81 4. Sensorineural hearing loss, bilateral H90.3 5. Impaired mobility and ADLs Z74.09 Z78.9 6. Impairment of balance R26.89 7. Pre-syncope R55 8. Autism spectrum disorder F84.0 Billing And Accounting Staff Assistant: CHIN Ivory,OTR/L Referring Physician: Virgil Schilling MD Vendor: RAYA Acuña Funding: [facility] SESSION LENGTH: 75 minutes total treatment time VENDOR PRESENT FOR APPOINTMENT: yes Reason for Today's Visit: Shara was accompanied [...] following equipment: Wheelchair: push wheelchair from a [employer] sale - used when they go shopping, go to amusement [place] orout in the community Standing/Gait: none Bathing/Toileting: grab bar Sleep: He had a bed with side rails Transport: none Patient Lift: none Alternative Positioning: lift chair Orthotics/Bracing: needs new ones AAC/ Computer access: in the process of getting one Medical History: Amandas medical history was reviewed via chart review [...] ASSISTIVE TECHNOLOGY ASSESSMENT Measurements A: Hip Width: 12 B: Chest Width: 12 C: Thigh Width: D: Lower Le E: Seat Depth: 18 F: Seat to Axilla: 18 G: Seat to Elbow: H: Seat to Shoulder: 23.5 I: Seat to Top of Head: 33.5 J: Elbow to Hand: Home Environment and Transportation Considerations Shara lives with his mother and his brother. Home is one story, with ramp. The home has a(n) accessible living area. Sarbjit within home is concrete and laminate. Shara's primary bathroom is on the first floor and is a tub/shower combo. Their bedroom is on the first floor and accessible. Family vehicles: Only [place] Current/Medical Physical Status Cognitive Status: cognitive delays [...] Shara's needs. See below for details. Mobility: discussed group 2 PWC, mid wheel vs front wheel Bathing/Toileting: needs armrests and a raised toilet seat Sleep: needs rails, head elevation, and hi lo Transport: needs a car seat to help with postural control Equipment Prescribed Sleep Safe low bed Full electric articulation Multicolored (headboard=orange, footboard=orange, front safety rail=purple, front side panel=yellow, back safety rail=purple, back side rail=yellow, black post color, black trim color) Padding - around windows, pink Plexiglass windows Twin size Wheelchair Jeniffer Solo 613 Iceberg blue matte Joystick on the left side They want to order a wheelchair mount, but it doesn't have a traditional under the seat rail. He does not have the SGD yet so the mount will not be ordered until he receives the wheelchair and SGD. Brainstorming will need to happen to figure out where to mount it. Toilet chair Tall Jacklyn Elevated Toilet Seat The wheelchair can be delivered to the home. Patient and Family Education: Discussed the recommendations from this appointment, including prescribed equipment and process of acquiring new equipment. Mother and patient were provided with name and number of therapist and vendor to call with any questions or concerns. Mother verbalized understanding of the information provided. Plan of Care [facility] [...] be determined to provide independent mobility. 02/09/2025 Met 02/16/2025 Appropriate means of positioning will be determined to provide safe sleep. 02/09/2025 Met 02/16/2025 Appropriate means of positioning will be determined to provide support while toileting. 02/09/2025 Met 02/16/2025 documented in this encounter Plan of Treatment Upcoming Encounters Date Type Department Care Team (Late st Contact Info) Description 03/31/2025 10:00 AM EDT Appointment [facility] Division of Audiology [address] [place] [phone] Audiology, [facility] Tania Escobar, Kayden Discharge Disposition: Home or Self Care documented as of this encounter Visit Diagnoses Diagnosis Other cerebral palsy- Primary Abnormal posture Muscle weakness Muscle weakness (generalized) Sensorineural hearing loss, bilateral Impaired mobility and ADLs Mechanical problems with limbs Impairment of balance Abnormality of gait Pre-syncope Syncope and collapse Autism spectrum disorder Autistic disorder, current or active state documented in this encounter Care Teams Scooping Machine Tender Relationship Specialty Start Date End Date Rock Bustos M.D. [address] [place], [place] [id number] PCP - General External Family Practice 03/02/16 documented as of this encounter
--- OUTSIDE RECORDS SUMMARY | 2025-02-23 14:30 | XMS_ITS | Encounter Summary ---
Author Organization [facility] Address [address] [place] [address] Care Team Providers Care Stain Applicator Name Role Phone Rock Bustos M.D. Primary Care Provider [phone] Reason for Visit * Reason Comments AT [facility] Treatment/Trials Encounter Details Date Type Department Care Team (Late st Contact Info) Description 02/23/2025 2:30 PM EDT Therapy Visit [facility] [address] [place] [phone] Daniela Matos M.D. [facility] [address] [place] [address] [address] [place] [address] Paras Holliday CCC-GOLF PLAYER ASSISTANT AT [facility] Treatment/Trials Discharge Disposition: Home or Self Care [...] this encounter Progress Notes * Paras Holliday, ROSIO-GOLF PLAYER ASSISTANT - 02/23/2025 2:30 PM EDT Patient Name: Marielos Olmedo AT Series Treatment Note-Speech Diagnosis: ICD-10-CM 1. 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 Sensorineural hearing loss, bilateral H90.3 3. Mixed receptive-expressive language disorder F80.2 4. Autism spectrum disorder F84.0 5. Cerebral palsy, unspecified type G80.9 Date of Treatment: 02/23/2025 Service: individual 75 minutes Speech Plan of Care The [facility] therapy services plan of care is developed [...] conversation partner using an AAC system. 02/09/25 A bit hesitant to touch sometimes, looks at me first-gaining confidenceto explore Unable to spell and find some letters STG- Goal Area: Caregiver Education STG-To make an informed decision on the best AAC system for successful communication 02/09/25 Mom prefers to wait in lobby and let Shara trial independently. STG- Prognosis: good Progress: See goals above visit Devices Page sets Access method Dwell Time pros cons #1 Via Pro VoddlerChat WP 60 Direct select Robust vocab Today only used 1 word to communicate-needs practice sentence building #2 Via Pro TouchChat WP 60 Direct Select Good solid vocabulary system. Responds well to aided modeling. Struggled with predictive text- And spelling in general. #3 #4 Will bring in phone next week-so we can see how he uses it~ Dates Trialed Name of Burton / Page Set Communicative Functions Request Label Answer Ask Social Comment Protest Core Words Misc. / Fringe 02/09/25 Via Pro WP 60 Basic What did you have for breakfast Greetings good/bad spelled name on keyboard 02/09 QUILL PICKING MACHINE OPERATOR 60 Activities To watch sports Greetings/partings Descriptions-feelings No + stop I + want Go stop Next Session: Phrase based system Recommendations: Continue to address Plan of Care for progress toward goals. [facility] SPEECH-LANGUAGE PATHOLOGY EVALUATION Name: Marielos Olmedo Date of Evaluation: 02/23/2025 Date of : 2005 Address: [address] [place] [address] Age: 19years (home) Medical Diagnosis: (G80.9) Cerebral palsy, unspecified type (F84.0) Autism spectrum disorder Referred by: Bola Gomez M.D. 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 Through his current program, Shara does not receivetherapy services. He does not currently receive outpatient therapy services. Shara's primary care p leighann is Rock Bustos M.D. Shara's caregiver reports [...] consumer???s most recent cognitive assessment (done by GOLF PLAYER ASSISTANT) Amandas cognitive (i.e. attention, memory, problem solving, [...] Word association 100% Adjective vocabulary 90% Language: Bruneian Speech skills and prognosis The structure of Shara???s oral mechanism appeared to be intact and sufficient for speech. Impairments include: none. Control and function of oral structures is judged to be significantly impaired. Impairments include: uncoordinated movements, spasticity, limited vocal or verbal output, difficulty imitating words and phrases, , limited consonant inventory, and limited vowel inventory. Amandas verbal/vocal output is limited to: neutral vowels, [...] natural speech will not be sufficient to meetAmandas daily communication needs for the foreseeable future. [...] in an AAC trial series at the [facility] in 2019, but, per parent report, stopped attending due to the COVID-19 pandemic. He has used a SGD in the past. Shara received a Proslate 10D by [employer] AAC with Touch Chat with Word Power 42 in 2016. Per parent report and review of records, [...] a meal for dinner ( sandwich ). Description of Social Pragmatic Skills Shara is functionally non-speaking and communicates primarily via vocalizations, reaching, facial expressions, gestures, sign language, yes/no responses, laughing, and crying. Pragmatic language skills are judged to be moderately impaired. Communication intents include: some response to greetings a nd salutations, inconsistent turn taking, choice making, requesting, asking and answering wh- and yes/no questions, initiating communicative interactions, commenting, and clarifying communication breakdowns. Notably, pragmatic skills are further negatively impacted by speech and language deficits. Description of consumer???s use of current SGD, if applicable (Include date current SGD acquired) Shara has not owned or used an SGD. Emotional status as it relates to communication When communicative breakdowns occur, Shara reportedly becomes frustrated, discontinues attempts tocommunicate, and shuts down. It was felt by all parties that he requires alternative means of communication to reduce frustration and establish social closeness with others. State why current communication behaviors prevent communication of basic needs As a result of Victor Manuelo???s significant speech and language disorder, he is unable to verbally express wants and needs with communication partners without the assistance of augmentative and/or alternative communication strategies. Shara???s speaking needs cannot be met using natural communication methods. His ability to meet daily communication needs will benefit from acquisition and use of an appropriate speech generating device. #5 documented in this encounter Plan of Treatment Upcoming Encounters Date Type Department Care Team (Late st Contact Info) Description 03/31/2025 10:00 AM EDT Appointment [facility] Division of Audiology [address] [place] [phone] Audiology, [facility] Tania Escobar, Kayden Discharge Disposition: Home or Self Care documented as of this encounter Visit Diagnoses Diagnosis Other symbolic dysfunctions- Primary Sensorineural hearing loss, bilateral Mixed receptive-expressive language disorder Autism spectrum disorder Autistic disorder, current or active state Cerebral palsy, unspecified type documented in this encounter Care Teams Stain Applicator Relationship Specialty Start Date End Date Rock Bustos M.D. [address] [place] [address] PCP - General External Family Practice 03/02/16 documented as of this encounter
--- OUTSIDE RECORDS SUMMARY | 2025-02-23 14:30 | XMS_ITS | Encounter Summary ---
Author Organization [facility] Address [address] [place] [address] Care Team Providers Care Mail Examiner Name Role Phone Rock Bustos M.D. Primary Care Provider [phone] Reason for Visit * Reason Comments AT [facility] Treatment/Trials Encounter Details Date Type Department Care Team (Late st Contact Info) Description 02/23/2025 2:30 PM EDT Therapy Visit [facility] [address] [place] [phone] Daniela Matos M.D. [facility] [address] [place] [address] [address] [place] [address] Natalie Hamlin, OTR/L AT [facility] Treatment/Trials Discharge Disposition: Home or Self Care [...] Progress Notes * Natalie Hamlin, OTR/L - 02/23/2025 2:30 PM EDT OT Plan of Care [facility] therapy services plan of care is developed [...] & access Start Date Status Date Met STG - Shara will participate in AAC trials as needed to determine optimal setup, vision support, and access for AAC strategies/device to meet basic communication needs. 02/09/25 Shara moved his face close to the Via Pro and occasionally moved his glasses out of the way. He had some difficulty finding what he was instructed to find but he also did not have his hearing aids in. STG - STG - STG - STG - Goal Area: sensory STG - STG - STG - STG - STG - Goal Area: self-help (ADL's, feeding, socialization) STG - STG - STG - STG - STG - Goal Area: caregiver education STG - Shara's caregiver will be educated on features, language program, editing, and use of SGDs during trials, as needed to determine final SGD recommendations. 02/09/25 Shara's mother wants him to get into some kind of day program. STG - STG - STG - STG - OCCUPATIONAL THERAPY TREATMENT AAC Treatment/Trials Date of Treatment: 02/23/2025 Service: individual 75 minutes and total treatment time 75 minutes Treatment Type: Occupational Therapy Treatment Treatment Diagnoses: ICD-10-CM 1. Fine motor delay F82 2. Impaired mobility and ADLs Z74.09 Z78.9 3. Cerebral palsy, unspecified type G80.9 S: Shara is a 19 y.o. male who is referred for occupational therapy treatment for abilities as they relate to functional communication and use of a communication system. He attended the treatment session with his mother who provided pertinent information and history/status. Patient's mother reported he forgot his hearing aids at home. She said he will do better for us if she stays out of the room. O: Devices Attempted, Access Methods/Strategies Trialed, and Comments Visit # Device Used Page Set Access Method Dwell Time Pros Cons 1 Via Explorer.iot WP 64 Renata Had a good sized vocabulary Seemed to have a little trouble finding what he was looking for. 2 Via Pro [employer]t WP 60 Direct Took a while to find what he was looking for but did remember whenhe was shown. A/P: Strategies/Setup trialed this date requires further trials. Next session plan to try 42 location and compare. Try 60 with more adult vocabulary. Continue to address Plan of Care for progress toward goals. OCCUPATIONAL THERAPY EVALUATION Date of Assessment: 02/09/2025 Service: individual 75 minutes and total treatment time 75 minutes Treatment Type: Occupational Therapy evaluation Treatment Diagnoses: ICD-10-CM 1. Fine motor delay F82 2. Impaired mobility and ADLs Z74.09 Z78.9 3. Cerebral palsy, unspecified type G80.9 PATIENT HISTORY AND OCCUPATIONAL PROFILE Shara is [...] (Type, Name, Frequency): OT: none PT: none DEVOPS CONSULTANT: none School, Grade, Travel Director: Graduated from high school, volunteers Environment and Psychosocial: Lives in: 1 story house Lives with: mother and twin brother Other info: father comes in town from working occasionally Play and Interests: Raises chickens, plans give aways for kids and other people Equipment: Shara arrived to the [facility] transport chair. Equipment Vendor: [employer] Equipment Therapists: Jeremy Wheelchairs, Strollers, and Transport [...] on it but finds that he plays Chug games and goes on [employer] marketplace Other: ASSESSMENT OF OCCUPATIONAL PERFORMANCE Appearance/Behavior; Tolerance [...] screen SGD???s trialed. Mobility Status Marielos Olmedo ambulates with difficulty and requires a wheelchair for most distances. Due to difficulties with getting proper referrals, Shara's previous power wheelchair didnot get delivered to him and eventually was returned. He doesn't currently have a manual or power wheelchair and gets around with transport chairs when at the hospital, [employer] carts when at the store and a [...] a cane for mobility around the environment [place] for Mobility: independently drives a power wheelchair [...] Last vision exam: .January 2025 at local safety deposit clerk Diagnoses: Astigmatism Glasses: yes, received new glasses [...] Cons 1 Via Pro TouchChat WP 64 Renata Had a good sized vocabulary Seemed to have a little trouble finding what he was looking for. CLINICAL DECISION MAKING: Shara is a 19 y.o. male. The primary encounter diagnosis was Fine motor delay. Diagnoses of Impaired mobility and ADLs and Cerebral palsy, unspecified type were also pertinent to this visit. An expanded [...] Info) Description 03/31/2025 10:00 AM EDT Appointment [facility] Division of Audiology [address] [place] [phone] Audiology, [facility] Tania Escobar, Kayden Discharge Disposition: Home or Self Care documented as of this encounter Visit Diagnoses Diagnosis Fine motor delay- Primary Other specified delay in development Impaired mobility and ADLs Mechanical problems with limbs Cerebral palsy, unspecified type documented in this encounter Care Teams Mail Examiner Relationship Specialty Start Date End Date Rock Bustos M.D. [address] [place], [place] [id number] PCP - General External Family Practice 03/02/16 documented as of this encounter
--- OUTSIDE RECORDS SUMMARY | 2025-03-09 14:30 | XMS_ITS | Encounter Summary ---
Author Organization [facility] Address [address] [place] [address] Care Team Providers Care Powdered Metal Supervisor Name Role Phone Rock Bustos M.D. Primary Care Provider [phone] Reason for Visit * Reason Comments AT [facility] Treatment/Trials Encounter Details Date Type Department Care Team (Late st Contact Info) Description 03/09/2025 2:30 PM EDT Therapy Visit [facility] [address] [place] [phone] Daniela Matos M.D. [facility] [address] [place] [address] [address] [place] [address] aNtalie Hamlin, OTR/L AT [facility] Treatment/Trials Discharge Disposition: Home or Self [...] Progress Notes * Natalie Hamlin, OTR/L - 03/09/2025 2:30 PM EDT OT Plan of Care [facility] therapy services plan of care is [...] to meet basic communication needs. 02/09/25 Shara did better with 42 location vocabulary on both the 8 and 11 screen. He agreed withmom about wanting the 11 screen for future vision trouble. STG - STG - STG - STG [...] determine final SGD recommendations. 02/09/25 Shara's mother prefers the Via Pro for him. She will bring his insurance cards next week. STG - STG - STG - STG - OCCUPATIONAL THERAPY TREATMENT AAC Treatment/Trials Date of Treatment: 03/09/2025 Service: individual 90 minutes and total treatment time 90 minutes Treatment Type: Occupational Therapy Treatment Treatment Diagnoses: ICD-10-CM 1. Fine motor delay F82 2. Cerebral palsy, unspecified type G80.9 S: Shara is a 19 y.o. male who is referred for occupational therapy treatment for abilities as they relate to functional communication and use of a communication system. He attended the treatment session with his mother who provided pertinent information and history/status. Patient's mother reported they will schedule another appointment or two to make up for the appointments they had to cancel. O: Devices Attempted, Access Methods/Strategies Trialed, and Comments Visit # Device Used Page Set Access Method Dwell Time Pros Cons 1 Via Pro TouchChat WP 64 Direct Had a good sized vocabulary Seemed to have a little trouble finding what he was looking for. 2 Via Pro TouchChat WP 60 Direct Took a while to find what he was looking for but did remember whenhe was shown. 3 Via MIni TouchChat WP 60 Direct Proslate 8 TouchChat WP 42 Direct Via Pro TouchChat WP 42 Direct Better able to find what he was looking for. Less vocabulary A/P: Strategies/Setup trialed this date was successful. Next session plan to complete paperwork forWuipera Pro, look at mounting options and colors and make voice selection. Continue to address Plan of Care for progress toward goals. OCCUPATIONAL THERAPY EVALUATION Date of Assessment: 02/09/2025 Service: individual 75 minutes and total treatment time 75 minutes Treatment Type: Occupational Therapy evaluation Treatment Diagnoses: ICD-10-CM 1. Fine motor delay F82 2. Cerebral palsy, unspecified type G80.9 PATIENT HISTORY [...] (Type, Name, Frequency): OT: none PT: none FLORICULTURE PROFESSOR: none School, Grade, Management Aide: Graduated from high school, volunteers Environment and Psychosocial: Lives in: 1 story house Lives with: mother and twin brother Other info: father comes in town from working occasionally Play and Interests: Raises chickens, plans give aways for kids and other people Equipment: Shara arrived to the [facility] transport chair. Equipment Vendor: [employer] Equipment Therapists: Jeremy Wheelchairs, Strollers, and Transport [...] yes -- power wheelchair, bath chair, bed Charltote to be considered during trials: Clamp-on mount - frame to be determined Assistive Technology (Current/Previous): Augmentative Communication: has had a Proslate in the past Computer Access: has an android phone. Mom is not sure what he does on it but finds that he plays Ed[employer]on and goes on [employer] marketplace Other: ASSESSMENT OF OCCUPATIONAL PERFORMANCE Appearance/Behavior; [...] with transport chairs when at the hospital, [employer] carts when at the store and a [...] a cane for mobility around the environment [place] for Mobility: independently drives a power wheelchair [...] Last vision exam: .January 2025 at local photographer apprentice Diagnoses: Astigmatism Glasses: yes, received new glasses [...] primary encounter diagnosis was Fine motor delay. A diagnosis of Cerebral palsy, unspecified type was also pertinent to this visit. An [...] Info) Description 03/31/2025 10:00 AM EDT Appointment [facility] Division of Audiology [address] [place] [phone] Audiology, [facility] Tania Escobar, Kayden Discharge Disposition: Home or Self Care documented as of this encounter Visit Diagnoses Diagnosis Fine motor delay- Primary Other specified delay in development Cerebral palsy, unspecified type documented in this encounter Care Teams Powdered Metal Supervisor Relationship Specialty Start Date End Date Rock Bustos M.D. MUNA: [phone] [address] [place], [place] [id number] PCP - General External Family Practice 03/02/16 documented as of this encounter
--- OUTSIDE RECORDS SUMMARY | 2025-03-09 14:30 | XMS_ITS | Encounter Summary ---
Author Organization [facility] Address [address] [place] [address] Care Team Providers Care Security Consultant Name Role Phone Rock Bustos M.D. Primary Care Provider [phone] Reason for Visit * Reason Comments AT [facility] Treatment/Trials Encounter Details Date Type Department Care Team (Late st Contact Info) Description 03/09/2025 2:30 PM EDT Therapy Visit [facility] [address] [place] [phone] Daniela Matos M.D. [facility] [address] [place] [address] [address] [place] [address] Paras Holliday CCC-SCRAP DROP CRANE OPERATOR AT [facility] Treatment/Trials Discharge Disposition: Home or Self Care [...] this encounter Progress Notes * Paras Holliday, ROSIO-SCRAP DROP CRANE OPERATOR - 03/09/2025 2:30 PM EDT Patient Name: Marielos Olmedo AT Series Treatment Note-Speech Diagnosis: ICD-10-CM 1. 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 Sensorineural hearing loss, bilateral H90.3 3. Mixed receptive-expressive language disorder F80.2 4. Autism spectrum disorder F84.0 5. Cerebral palsy, unspecified type G80.9 Date of Treatment: 03/09/2025 Service: individual 90 minutes Speech Plan of Care [facility] therapy services plan of care is [...] to communicate wants & needs successfully. 02/09/25 Deciding between 8 and 10 inch screens-ultimately went with the larger device based on vision needs. STG -To demonstrate ability to take 2-3 [...] predictive text- And spelling in general. #3 Wego 10A-D and 8 A-d Touhchat 42 Direct select Went w/42 versus 60-more efficient New 5 year warranty Liked #4 Via Mini Proslate 8 D Touchchat 42 Direct select In the end-the larger devices seemed more functional over the next 5 years. Will bring in phone next week-so we can see how he uses it~ Dates Trialed Name of Burton / Page Set Communicative Functions Request Label Answer Ask Social Comment Protest Core Words Misc. / Fringe 02/09/25 Via Pro WP 60 Basic What did you have for breakfast Greetings good/bad spelled name on keyboard 02/09 TANK CAR RECONDITIONER 60 Activities To watch sports Greetings/partings Descriptions-feelings No + stop I + want Go stop Recommendations: Continue to address Plan of Care for progress toward goals. [facility] SPEECH-LANGUAGE PATHOLOGY EVALUATION Name: Marielos Olmedo Date of Evaluation: 03/09/2025 Date of : 2005 Address: [address] [place] [id number] Age: 19years (home) Medical Diagnosis: (G80.9) Cerebral palsy, unspecified type (F84.0) Autism spectrum disorder Referred by: Zak Aviles Jr. BOX SPINNER-DIRECTOR DRUG SAFETY SCRAP DROP CRANE OPERATOR Diagnosis: (R48.8) Other symbolic dysfunctions (primary encounter diagnosis) (F80.2) Mixed receptive-expressive language disorder Licensed SCRAP DROP CRANE OPERATOR: Paras Holliday MA, [facility]-SCRAP DROP CRANE OPERATOR Date of Onset: 2005 () Licensed OT: Diagnosis/Prognosis: good Time spent: 90 minutes BACKGROUND INFORMATION Shara is a 19years old male who was seen for an augmentative and alternative communication evaluation (AAC) at the [facility] to evaluate alternative strategies to facilitate [...] 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 in [place], [place]. Through his current program, Shara does [...] consumer???s most recent cognitive assessment (done by SCRAP DROP CRANE OPERATOR) Amandas cognitive (i.e. attention, memory, problem solving, [...] Word association 100% Adjective vocabulary 90% Language: Divehi Speech skills and prognosis The structure of [...] in an AAC trial series at the [facility] in 2019, but, per parent report, stopped attending due to the COVID-19 pandemic. He has used a SGD in the past. Shara received a Proslate 10D by [employer] AAC with Touch Chat with Word Power [...] relates to communication When communicative breakdowns occur, Sahra reportedly becomes frustrated, discontinues attempts tocommunicate, and shuts down. It was felt by all parties that he requires alternative means of communication to reduce frustration and establish social closeness with others. State why current communication behaviors prevent communication of basic needs As a result of Sahra???s significant speech and language disorder, he is unable to verbally express wants and needs with communication partners without the assistance of augmentative and/or alternative communication strategies. Shara???s speaking needs cannot be met using natural communication methods. His ability to meet daily communication needs will benefit from acquisition and use of an appropriate speech generating device. Identify primary communication partners (family members, caregivers, etc.) and any associated limitations and needs. Shara requires the ability to communicate with communication partners. Using natural communication, he is unable to convey messages to communication partners, including, but not limited to, family, caregivers, teachers, peers, medical personnel and community members. Message needs (pragmatics) Based on the results of this evaluation as well as parent and therapist report, Shraa requires an SGD that allows for, but is not limited to, the following language features: expressing physical needs/wants, participation in decision- making, participation in conversations, sharing personal information, reporting medical status and complaints, asking questions, giving responses, producing greetings and salutations, answering yes/no questions, and participating in vocational activities. Vocabulary (semantics) Shara needs a system that provides access to core and fringe vocabulary representing all parts of speech (i.e. nouns, verbs, adjectives, pronouns, prepositions, conjunctions, determiners, question words, grammatical word endings) so that generative, independent language can be easily created. Communication environments (Include description of vocational and educational status) Shara requires the ability to communicate in a variety of environments including, but not limited to home, occupational settings, therapy, medical settings, phone, and community settings. The above needs are not met by his natural communication. Assessment of Consumer???s Needs Representational System (symbol system) Shara demonstrated the ability to functionally use and respond to [employer] symbols and Symbol Stix during the evaluation. Shara prefers Symbol Stix symbol set due to previous exposure and functional use. Vocabulary Encoding (semantics) Based on his language and literacy functioning, Shara requires an SGD that allows for basic core and extensive fringe vocabulary. He requires communication using whole words for building novel sentences, and the ability to store categorized phrases for quick initiation of conversations when he is out in the community or addressing unfamiliar communication partners. He requires the ability to navigate between layers of pages for maximum expandability of vocabulary. Shara requires a SGD that allows for message generation via a combination of pre-programmed whole words and phrases paired with picture symbols to support literacy skills. He demonstrated the following literacy skills: identification of letters, identification of name, and identification of several highly salient words. He demonstrates the need for a dynamic screen SGD allowing for page navigation to categories. Vocabulary Expandability and Message Generation Shara requires a dynamic display SGD that allows for expanded vocabulary as well as message generation via a combination of pre-programmed whole words and phrases paired with picture symbols to support literacy skills, and to increase timely and efficient access. Rate Enhancement: Shara requires an SGD that allows for the ability to store/edit/retrieve whole messages and/or narrative messages under word/symbol buttons or message files and use word/symbol prediction rate acceleration techniques to communicate messages in a timely and efficient manner. Access Techniques and Strategies: Shara requires access via manual direct selection. Overlay/Keyboard Organization and Features: Shara did not demonstrate the need for a keyguard due to independent access without adaptations. He was able to accurately target and access cells directly with isolated index finger without adaptations during the evaluation trials. See OT and physical assessment for further details. Device Output Modes: Shara requires synthesized speech output in order to communicate with non-readers, communication partners that are positioned a distance away from him, as well as with people over the phone. He will also benefit from the ability to turn up the volume for communication in loud s ettings. Shara demonstrates emerging literacy skills, and therefore requires synthesized text to speech output for creation of novel utterances. Shara additionally requires an SGD that supports digital photographs, allowing for photographic representations of familiar items and individuals. Portability Concerns: Shara requires a small to mid-sized screen to decrease fatigue (i.e. reaching across screen to access desired target vocabulary) during manual direct selection and to accommodate as many target locations as possible while retaining an appropriate target size. He requires the SGD to be to be portable to allow for appropriate positioning for access and communication across environments. SUMMARY AND RECOMMENDATIONS Comparison of SGD specifications Shara attended appointments on the following dates: 02/09, 02/23, 03/09 and 03/16/2025, during which hewas evaluated and trialed a variety of augmentative communication devices and strategies: and vocabulary systems. Shara was accompanied to the session(s) by his mother. A patient history was completed. At this time, Shara???s family expressed frustration over his current level of communication. They are interested in identifying an augmentative communication system to increase communicative independence and decrease his frustration level. Priorities include a functional communication system that can be utilized in all environments. Shara participated in an assessment of skills and knowledge relevant to SGD use. During these assessments, he demonstrated the ability to identify nouns and verbs represented by picture symbols, locate vocabulary by category, navigate between two to three pages in order to locate desired vocabulary, and create novel utterances through the use of a combination of pre-stored words or phrases. Based on the aforementioned requirements and the results of this evaluation, as well as patient/caregiver reports, a dynamic display device with a large amount of vocabulary is required. Features required include: customizability, symbol support, small to midsize device for portability, mid-size for visual needs and synthesized speech. An iPad with a voice output application was immediately ruled out due to: it is not a dedicated device and the presence of other applications and games on the device pose as a distraction; the volumeof the device is not adequate for noisy environments; the device is not durable or supported by palliative senior np's warranty; and the device lacks customer support that is available for a dedicated speech generating device. The following SGDs were judged to be potential devices for Buddio: Via-mini by Bella, Via Pro Dedicated w/Touch Chat HD w/Word Power by ANNE Jane, Proslate 10D by [employer]cko [employer], Proslate 8D by [employer]cko [employer], Wego 7A-D by [employer], and Wego 10A-D by [employer] Buddio???s access method was evaluated in collaboration with the occupational therapist and determined to be direct select. All of the above devices were selected for consideration due to the fact that he responded well to Touch Chat with Word Power and these speech generating devices supported this vocabulary system. TheVia-Mini by Bella, the Proslate 8D by [employer]cko [employer] and the Wego 7 A-D by [employer] were all viable devices, but Shara had to get very close to the screen to see the symbols. The devices were portable, yet visually a bit challenging for him to see. This left the Via Pro Dedicatedw/Touch Chat HD w/Word Power by [employer], the Proslate 10D by [employer]cko [employer] and the Wego 10A-D by [employer] for consideration. Ultimately, the Via Pro Dedicated w/Touch Chat HD w/Word Power by [employer], device was recommended for the following reasons: Overall, Buddio requires a SGD that supports: synthesized speech, permitting multiple methods of message formulation and multiple methods of device access (E2510). Therefore, the recommended device and accessories include: Via Pro Dedicated w/Touch Chat HD w/WordPower by Bella,. The recommended language system is Touch Chat with Word Power 42 Basic. Therecommended access method is direct. The Via Pro Dedicated w/Touch Chat HD w/Word Power by Bella speech generating device fulfills all requirements and is required for Shara???s functional use of communication across communicative partners and environments. It should be noted, the recommended speech generating device and accessories meets the definition of durable medical equipment (DME) as set forth by the Centers for Medicare and Medicaid Services: itis a dedicated speech generating device that is limited to use by a patient with a severe speech impairment for the primary purpose of generating speech; it can withstand repeated use; it is primarily and customarily used to serve a medical purpose; it is not useful to a person in the absence of anillness or injury and it is appropriate for use in the home. If a higher tech SGD requested, document why a lower tech SGD is inadequate. Other SGDs were ruled out from consideration secondary to their inability to fulfill all requirements as detailed in the ???Assessment of Consumer Needs?? section of this report. In particular: Low-tech devices were too limiting regarding available vocabulary and did not have the ability to accommodate a dynamic display, synthesized speech, adequate symbol support, message generation via spelling, word-based vocabulary to support the generation of novel messages, picture/symbol prediction, andword prediction when spelling. Small-screen devices were judged to be inappropriate secondary to motor and visual needs. Heavy large-screen devices were judged to be inappropriate secondary to the need for a lightweight and portable SGD. Shara is unable to fulfill daily functional communication needs using natural speech. he demonstrates difficulty producing words spontaneously and imitating words and he does not use words functionally (i.e. he will walk to a swing, but will not use verbal speech to say swing without a model andwill not imitate swing when prompted in order to request that he/she wants to swing). Without a high-tech speech generating device, Shara will have limited opportunities to communicate with others, because his natural communication skills are not enough for someone his age, as well as the vocabulary that he does have is not used functionally or consistently enough. Sign language is not a viable option for communication due to the inability of most communication partners to understand this method of communication as most people in the everyday environment are not competent in sign language. This limits communication partners and renders this client unable to meet daily communication needs. In addition, sign language cannot be used over the phone or from another room. Communication Boards/Books and picture exchange limit communication to the symbols provided in a book or board. Managing these symbols and having them readily available to Buddio during communicationopportunities presents a challenge to independent, easily accessible communication. Navigating through pages of language and/or individual symbol cut outs (usually with the assistance of others) slows down or completely stops the communication process. In addition, communication books and boards donot provide the breadth of vocabulary needed for Buddio to meet all communication needs, and they also lack voice output, making it impossible to call for help or talk on the phone. TREATMENT PLAN AND FOLLOW-UP Short- and Long-term communication goals The following goals are based on the results of this evaluation and are to be implemented upon receipt of the Via Pro Dedicated w/Touch Chat HD w/Word Power by Bella, speech generating device and required accessories. communication instructor goals: To train Buddio???s family/teachers/facilitators to operate this device and program vocabulary. To train Buddio to use strategies of communicating effectively with his device to initiate interaction as well as perform a variety of communication functions such as denial, clarification, questioning, and commenting, etc. To increase Buddio???s communicative competence using his new augmentative communication system. Short term goals: Using his SGD, Shara will: Victor Manuelo and/or Budlarono's primary caregiver will demonstrate independence in customizing an individualbutton. Indicate wants, needs, and feelings when interacting with family, peers, teachers, therapists, caregivers, physicians, and other health career counselor as needed. Use social phrases per age appropriate use of pragmatic language (e.g. saying Hi, Goodbye, etc.). Engage in age appropriate social communication exchanges with friends across a variety of settings. Participate in activities of daily living in an age appropriate manner (e.g. indicating when hungry, requesting an activity, etc.). Identify age appropriate vocabulary (e.g. foods, activities, familiar people, etc.) per academic and pre-academic development goals. Caregivers will verbally demonstrate basic care and maintenance of the device Caregivers will attend or participate in a training session online or provided by the vendor Individual SCRAP DROP CRANE OPERATOR and/or organization/facility responsible for SGD training Following receipt of the recommended SGD and accessories, it is recommended that Shara receive 5 treatment sessions addressing the acquisition of the functional communication goals listed above. Shara's family and/or primary caregivers are encouraged to participate in the treatment sessions so they may learn to assist him in the use of the SGD as needed. Shara's treatment goals would best be met in an individual setting. Following discharge from treatment, Shara will be re- evaluated as needed at the request of the patient, physician, or family to determine the need for updates/modifications of the SGD. Initial training on the Via Pro Dedicated w/Touch Chat HD w/Word Power by ANNE Jane, speech generating device will be required upon receipt of the SGD. The [facility] will provide speech-language and/or occupational therapy services for SGD training under standard billable rates. Such training is vital for Victor Manuelo???s success in improving communication in all environments. Necessary modification of the SGD to suit the individual consumer???s access needs The following modifications of the SGD will include: Hiding/showing keys Word prediction Adding and changing vocabulary lists and phrases to fit the patient's typical lexicon Modification of layout, colors, symbols, digital photos/words and other presentation to fit the patient's needs These modifications will be applied during the initial training period as described above. Schedule for evaluating the outcome of the trial use period (Must be used when requesting authorization for rental during a trial use period) N/A PRESCRIPTION FOR SGD Name of Requested SGD (List required components, accessories, peripheral devices, supplies) Equipment Recommended/Prescribed: SGD, Mounting System, or Accessory Medicare/CPT Code Material Flow Analyst/Vendor Via Pro Dedicated w/Touch Chat HD w/Word Power by Bella [id number] Bella Vendor: Bella A copy of this report has been forwarded to Shara's treating physician, Jr.APR YanivN-DIRECTOR DRUG SAFETY, prior to ordering the device. The SCRAP DROP CRANE OPERATOR performing this evaluation is not an employee of [employer] by the device palliative senior np. It was a pleasure to meet Shara and his family. If there are any questions regarding this evaluation, the report, or any recommendations, please contact the [facility] at [phone]. documented in this encounter Plan of Treatment Upcoming Encounters Date Type Department Care Team (Late st Contact Info) Description 03/31/2025 10:00 AM EDT Appointment [facility] Division of Audiology [address] [place] [phone] Audiology, [facility] Tania Escobar, Kayden Discharge Disposition: Home or Self Care documented as of this encounter Visit Diagnoses Diagnosis Other symbolic dysfunctions- Primary Sensorineural hearing loss, bilateral Mixed receptive-expressive language disorder Autism spectrum disorder Autistic disorder, current or active state Cerebral palsy, unspecified type documented in this encounter Care Teams Security Consultant Relationship Specialty Start Date End Date Rock Bustos M.D. [address] [place] [address], [place] [id number] PCP - General External Family Practice 03/02/16 documented as of this encounter
--- OUTSIDE RECORDS SUMMARY | 2025-03-16 13:00 | XMS_ITS | Encounter Summary ---
Author Organization [facility] Address [address] [place] [address] Care Team Providers Care Mortgage Branch Manager Name Role Phone Rock Bustos M.D. Primary Care Provider [phone] [phone] Reason for Visit * Reason Comments AT AAC Evaluation Encounter Details Date Type Department Care Team (Late st Contact Info) Description 03/16/2025 1:00 PM EDT Therapy Visit [facility] [address] [place] [address] Daniela Matos M.D. [facility] [address] [place] [address] [address] [place] [address] Paras Holliday CCC-PRESCHOOL ADVISER AT [facility] Evaluation Discharge Disposition: Home or Self Care [...] this encounter Progress Notes * Paras Holliday, ROSIO-PRESCHOOL ADVISER - 03/16/2025 1:00 PM EDT [facility] SPEECH-LANGUAGE PATHOLOGY EVALUATION For AUGMENTATIVE AND ALTERNATIVE COMMUNICATION (AAC) Name: Marielos Olmedo Date of Evaluation: 03/16/2025 Date of : 2005 Address: [address] [place] [address] Age: 19years (home) Medical Diagnosis: (G80.9) Cerebral palsy, unspecified type (F84.0) Autism spectrum disorder Referred by: Zak Aviles Jr. DAIRY NUTRITIONIST-STILL PHOTOGRAPHER PRESCHOOL ADVISER Diagnosis: (R48.8) Other symbolic dysfunctions (primary encounter diagnosis) (F80.2) Mixed receptive-expressive language disorder Licensed PRESCHOOL ADVISER: Paras Holliday MA, CCC-PRESCHOOL ADVISER Date of Onset: 2005 () Licensed OT: Diagnosis/Prognosis: good Time spent: 90 minutes BACKGROUND INFORMATION Shara is a 19years old male who was seen for an augmentative and alternative communication evaluation (AAC) at the [facility] to evaluate alternative strategies to facilitate [...] part-time home school education after graduating from [employer] in [place], [place]. Through his current program, Shara does not receivetherapy services. He does not currently receive outpatient therapy services. Shara's primary care p leighann is Virgil Schilling M.D. Shara's caregiver reports that he currently [...] consumer???s most recent cognitive assessment (done by PRESCHOOL ADVISER) Amandas cognitive (i.e. attention, memory, problem solving, [...] Word association 100% Adjective vocabulary 90% Language: Mohawk Speech skills and prognosis The structure of [...] in an AAC trial series at the [facility] in 2019, but, per parent report, stopped attending due to the COVID-19 pandemic. He has used a SGD in the past. Shara received a Proslate 10D by [employer] AAC with Touch Chat with Word Power [...] of basic needs As a result of Shara???s significant speech and language disorder, he is [...] as well as parent and therapist report, Shara requires an SGD that allows for, but is not limited to, the following language features: expressing physical needs/wants, participation in decision- making, participation in conversations, sharing personal information, reporting medical status and complaints, asking questions, giving responses, producing greetings and salutations, answering yes/no questions, and participating in vocational activities. Vocabulary (semantics) Shaar needs a system that provides access to [...] ability to functionally use and respond to [employer]/Tailwind symbols and Symbol Stix during the evaluation. [...] appointments on the following dates: 02/09, 02/23, 03/09, and 03/16/2025, during which he was evaluated and trialed a variety of augmentative [...] device is not durable or supported by group exercise instructor's warranty; and the device lacks customer support that is available for a dedicated speech generating device. The following SGDs were judged to be potential devices for Buddio: Via-mini by [employer] BiosystemsBuck, Via Pro Dedicated w/Touch Chat HD w/Word Power by [employer] Buck, Proslate 10D by [employer]in[employer]ix, Proslate 8D by [employer], Wego 7A-D by Surfly, and Wego 10A-D by Surfly Buddio???s access method was evaluated in collaboration with the occupational therapist and determined to be direct select. All of the above devices were selected for consideration due to the fact that he responded well to Touch Chat with Word Power and these speech generating devices supported this vocabulary system. TheVia-Mini by [employer]Buck, the Proslate 8D by [employer] and the Wego 7 A-D by Surfly were all viable devices, but Shara had to get very close to the screen to see the symbols. The devices were portable, yet visually a bit challenging for him to see. This left the Via Pro Dedicatedw/Touch Chat HD w/Word Power by [employer]Buck, the Proslate 10D by [employer]in[employer]ix and the Wego 10A-D by Surfly for consideration. Ultimately, the Via Pro Dedicated w/Touch Chat HD w/Word Power by [employer]Buck, device was recommended for the following reasons: Ultimately, the Via Pro by [employer] BiosystemsBuck device was recommended for the following reasons: Sturdy handle and stand, for extended durability. Splash-resistant design, meeting or exceeding all federal standards for durable medical equipment. Compatibility with a variety of access options, including direct touch, wired and wireless switch compatibility, and head tracking. Technical support and expertise. Weight: 2.65 lbs. for ease in portability. Choice of soft (active) or hard (classic) shell casing. A choice between a Basic or Enhanced warranty: Basic: Available as an integrated ONLY option and a 1-year warranty. Enhanced: Available as either a dedicated or integrated device. Includes carrying case and shoulderstrap and our standard 5-year warranty. Overall, Buddio requires a SGD that supports: synthesized speech, permitting multiple methods of message formulation and multiple methods of device access (E2510). Therefore, the recommended device and accessories include: Via Pro Dedicated w/Touch Chat HD w/WordPower by Bella. The recommended language system is Touch Chat with Word Power 42 Basic. The recommended access method is direct. The Via Pro Dedicated w/Touch Chat HD w/Word Power by Bella, speech generating device fulfills all requirements and [...] provide the breadth of vocabulary needed for Budlarono to meet all communication needs, and they [...] Bella, speech generating device and required accessories. MCC goals: To train Budlarono???s family/teachers/facilitators to operate this device and program vocabulary. To train Budlarono to use strategies of communicating effectively with his device to initiate interaction as well as perform a variety of communication functions such as denial, clarification, questioning, and commenting, etc. To increase Budlarono???s communicative competence using his new augmentative communication system. Short term goals: Using his SGD, Shara will: Budlarono and/or Budlarono's primary caregiver will demonstrate independence in customizing an individualbutton. Indicate wants, needs, and feelings when interacting with family, peers, teachers, therapists, caregivers, physicians, and other health home health care social worker as needed. Use social phrases per age [...] online or provided by the vendor Individual PRESCHOOL ADVISER and/or organization/facility responsible for SGD training Following receipt of the recommended SGD and accessories, it is recommended that Shara receive 5 treatment sessions addressing the acquisition of the functional communication goals listed above. Budlarono's family and/or primary caregivers are encouraged to [...] upon receipt of the SGD. The [facility] will provide speech-language and/or occupational therapy services [...] SGD, Mounting System, or Accessory Medicare/CPT Code Sales Consulting Director/Vendor Via Pro Dedicated w/Touch Chat HD w/Word Power by Bella E2510 Bella Clamp on Table Mount E2512 Bella Mount Plate E2512 Bella Vendor: Bella A copy of this report has been forwarded to Shara's treating physician, Virgil Schilling M.D. prior toordering the device. The PRESCHOOL ADVISER performing this evaluation is not an employee of or paid by the [employer]. It was a pleasure to meet Shara and his family. If there are any questions regarding this evaluation, the report, or any recommendations, please contact the [facility] at [phone]. Paras Holliday MA CCC-PRESCHOOL ADVISER Speech Language Pathologist License #: [id number] [facility] #: [id number] Date: Natalie ???Kaela?? Boubacar OTR/L Occupational Therapist License: [id number] Date: documented in this encounter Plan of Treatment Upcoming Encounters Date Type Department Care Team (Late st Contact Info) Description 03/31/2025 10:00 AM EDT Appointment [facility] Division of Audiology [address] [place] [phone] Audiology, [facility] Tania Escobar AuD Discharge Disposition: Home or Self Care documented as of this encounter Visit Diagnoses Diagnosis Other symbolic dysfunctions- Primary Spastic hemiplegic cerebral palsy Congenital hemiplegia Sensorineural hearing loss, bilateral Mixed receptive-expressive language disorder Autism spectrum disorder Autistic disorder, current or active state documented in this encounter Care Teams Mortgage Branch Manager Relationship Specialty Start Date End Date Rock Bustos M.D. [address] [place] [address] PCP - General External Family Practice 03/02/16 documented as of this encounter
--- OUTSIDE RECORDS SUMMARY | 2025-03-16 13:00 | XMS_ITS | Encounter Summary ---
Author Organization [facility] Address [address] [place] [address] Care Team Providers Care Soft Sugar Cutter Name Role Phone Rock Bustos M.D. Primary Care Provider [phone] Reason for Visit * Reason Comments AT [facility] Treatment/Trials Encounter Details Date Type Department Care Team (Late st Contact Info) Description 03/16/2025 1:00 PM EDT Therapy Visit [facility] [address] [place] [phone] Daniela Matos M.D. [facility] [address] [place] [address] [address] [place] [address] Natalie Hamlin, OTR/L AT [facility] Treatment/Trials Discharge Disposition: Home or [...] Progress Notes * Natalie Hamlin, OTR/L - 03/16/2025 1:00 PM EDT OT Plan of Care [facility] therapy services plan of care is [...] meet basic communication needs. 02/09/25 Shara did best with 42 location on Via Pro. STG - STG - STG - STG [...] determine final SGD recommendations. 02/09/25 Shara's mother helped make selections for equipment including a clamp on mount for his manual and future power wheelchairs. STG - STG - STG - STG - OCCUPATIONAL THERAPY TREATMENT AAC Treatment/Trials Date of Treatment: 03/16/2025 Service: individual 75 minutes and total treatment time 75 minutes Treatment Type: Occupational Therapy Treatment Treatment Diagnoses: ICD-10-CM 1. Impaired mobility and ADLs Z74.09 Z78.9 2. Fine motor delay F82 3. Cerebral palsy, unspecified type G80.9 STaty Olmedo is a 19 y.o. male who is [...] successful. Next session plan to complete paperwork forTerra Matrix Mediaa Pro, look at mounting options and colors and make voice selection. Continue to address Plan of Care for progress toward goals. OCCUPATIONAL THERAPY EVALUATION Date of Assessment: 02/09/2025 Service: individual 75 minutes and total treatment time 75 minutes Treatment Type: Occupational Therapy evaluation Treatment Diagnoses: ICD-10-CM 1. Impaired mobility and ADLs Z74.09 Z78.9 2. Fine motor delay F82 3. Cerebral palsy, unspecified type G80.9 PATIENT [...] (Type, Name, Frequency): OT: none PT: none ENGINE SETTER: none School, Grade, Mosaic Tiler: Graduated from high school, volunteers Environment and Psychosocial: Lives in: 1 story house Lives with: mother and twin brother Other info: father comes in town from working occasionally Play and Interests: Raises chickens, plans give aways for kids and other people Equipment: Shara arrived to the [facility] transport chair. Equipment Vendor: [employer] Equipment Therapists: Jeremy Wheelchairs, Strollers, and Transport [...] on it but finds that he plays AddonTV games and goes on [employer] marketplace Other: ASSESSMENT OF OCCUPATIONAL PERFORMANCE Appearance/Behavior; [...] with transport chairs when at the hospital, Rawporter's carts when at the store and a [...] a cane for mobility around the environment [place] for Mobility: independently drives a power wheelchair [...] Last vision exam: .January 2025 at local core cutter and reamer Diagnoses: Astigmatism Glasses: yes, received new glasses [...] encounter diagnosis was Impaired mobility and ADLs. Diagnosesof Fine motor delay and Cerebral palsy, unspecified type were also [...] 10:00 AM EDT Appointment [facility] Division of Audiology [address] [place] [phone] Audiology, [facility] Tania Escobar, Kayden Discharge Disposition: Home or Self Care documented as of this encounter Visit Diagnoses Diagnosis Impaired mobility and ADLs- Primary Mechanical problems with limbs Fine motor delay Other specified delay in development Cerebral palsy, unspecified type documented in this encounter Care Teams Soft Sugar Cutter Relationship Specialty Start Date End Date Rock Bustos M.D. [address] [place] [address] PCP - General External Family Practice 03/02/16 documented as of this encounter
[2025-03-18 16:25] LABS: Hepatitis C Ab Qual. W/ RFX NEGATIVE (Negative)
[2025-03-19 10:14] LABS: Hepatitis B Surface Antigen Negative (Negative)
--- OUTSIDE RECORDS SUMMARY | 2025-03-22 11:47 | XMS_ITS | Encounter Summary ---
Author Organization [facility] Address [address] [place] [address] Care Team Providers Care Coining Press Operator Name Role Phone Rock Bustos M.D. Primary Care Provider [phone] [phone] Encounter Details Date Type Department Care Team (Late st Contact Info) Description 11/04/2007 Clinical Note [facility] Division of Dentistry [address] [place] [phone] Provider, Historical Social History Tobacco Use Types Packs/Day Years Used Date Smoking Tobacco: Never Assessed Sex and Gender Information Value Date Recorded Sex Assigned at Not on file Legal Sex Male 5:16 AM EST Gender Identity Not on file Sexual Orientation Not on file documented as of this encounter Progress Notes * Provider, Historical - 11/04/2007 12:00 AM EDT I was present for the visit. Reviewed the findings. Agree with treatment plan.~Note authored by: Joao Nina ([email or web address]) documented in this encounter Plan of Treatment Upcoming Encounters Date Type Department Care Team (Late st Contact Info) Description 03/31/2025 10:00 AM EDT Appointment [facility] Division of Audiology [address] [place] [phone] Audiology, [facility] Tania Escobar, Kayden Discharge Disposition: Home or Self Care documented as of this encounter Visit Diagnoses Not on filedocumented in this encounter Additional Health Concerns Infection Onset Date Last Indicated Resolved Time COVID-19 Rule Out 02/14/2021 02/14/2021 02/14/2021 11:41 AM EDT documented as of this encounter Care Teams Coining Press Operator Relationship Specialty Start Date End Date Rock Bustos M.D. [address] [place], [place] [phone] PCP - General External Family Practice 03/02/16 documented as of this encounter
--- OUTSIDE RECORDS SUMMARY | 2025-03-22 11:47 | XMS_ITS | Encounter Summary ---
Author Organization [facility] Address [address] [place] [address] Care Team Providers Care Alteration Tailor Name Role Phone Rock Bustos M.D. Primary Care Provider +1 [phone] Encounter Details Date Type Department Care Team (Late st Contact Info) Description 11/04/2007 Clinical Note [facility] Division of Dentistry [address] [place] [phone] Provider, Historical Social History Tobacco Use Types Packs/Day Years Used Date Smoking Tobacco: Never Assessed Sex and Gender Information Value Date Recorded Sex Assigned at Not on file Legal Sex Male 5:16 AM EST Gender Identity Not on file Sexual Orientation Not on file documented as of this encounter Progress Notes * Provider, Historical - 11/04/2007 12:00 AM EDT Dentist/Optomechanical Engineer verified correct patient, correct site, correct procedure, correct positioning ofpatient and special equipment if needed, with Dentist/Optomechanical Engineer performing procedure immediately prior to beginning the procedure.~Note authored by: Claire Wiley ([email or web address]) documented in this encounter Plan of Treatment Upcoming Encounters Date Type Department Care Team (Late st Contact Info) Description 03/31/2025 10:00 AM EDT Appointment [facility] Division of Audiology [address] [place] [phone] Audiology, [facility] Tania Escobar, Kayden Discharge Disposition: Home or Self Care documented as of this encounter Visit Diagnoses Not on filedocumented in this encounter Additional Health Concerns Infection Onset Date Last Indicated Resolved Time COVID-19 Rule Out 02/14/2021 02/14/2021 02/14/2021 11:41 AM EDT documented as of this encounter Care Teams Alteration Tailor Relationship Specialty Start Date End Date Rock Bustos M.D. [address] [place] [address] PCP - General External Family Practice 03/02/16 documented as of this encounter
--- OUTSIDE RECORDS SUMMARY | 2025-03-22 11:48 | XMS_ITS | Encounter Summary ---
Author Organization [facility] Address [facility] [place] [address] Care Team Providers Care Finisher Merchant Products Name Role Phone Rock Bustos M.D. Primary Care Provider +1 [phone] Encounter Details Date Type Department Care Team (Late st Contact Info) Description 04/02/[address]/Medical Office [facility] Division of Audiology [address] [place] [phone] Sheela Dow AuD Social History Tobacco Use Types Packs/Day Years [...] Appointment [facility] Division of Audiology [address] [place] [phone] Audiology, [facility] Tania Escobar AuD Discharge Disposition: Home or Self Care documented as of this encounter Visit Diagnoses Not on filedocumented in this encounter Additional Health Concerns Infection Onset Date Last Indicated Resolved Time COVID-19 Rule Out 02/14/2021 02/14/2021 02/14/2021 11:41 AM EDT documented as of this encounter Care Teams Finisher Merchant Products Relationship Specialty Start Date End Date Rock Bustos M.D. [address] [place] [phone] PCP - General External Family Practice 03/02/16 documented as of this encounter
--- OUTSIDE RECORDS SUMMARY | 2025-03-22 11:48 | XMS_ITS | Encounter Summary ---
Author Organization [facility] Address [address] [place] [address] Care Team Providers Care Mottler Operator Name Role Phone Rock Bustos M.D. Primary Care Provider [phone] Encounter Details Date Type Department Care Team (Late st Contact Info) Description 12/07/2010 Clinical Note [facility] Division of Dentistry [address] [place] [phone] Provider, Nichole Social History Tobacco Use Types Packs/Day Years Used Date Smoking Tobacco: Never Assessed Sex and Gender Information Value Date Recorded Sex Assigned at Not on file Legal Sex Male 5:16 AM EST Gender Identity Not on file Sexual Orientation Not on file documented as of this encounter Progress Notes * ProviderNichole - 12/07/2010 12:00 AM EDT I was present for the critial portions of the appointment. I was present for the oral exam and history. I reviewed the findings and agree with the resident's assessment, treatment plan, and care provided.~Note authored by: River Pitt ([email or web address]) documented in this encounter Plan of Treatment Upcoming Encounters Date Type Department Care Team (Late st Contact Info) Description 03/31/2025 10:00 AM EDT Appointment [facility] Division of Audiology [address] [place] [phone] Audiology, [facility] Tania Escobar, Kayden Discharge Disposition: Home or Self Care documented as of this encounter Visit Diagnoses Not on filedocumented in this encounter Additional Health Concerns Infection Onset Date Last Indicated Resolved Time COVID-19 Rule Out 02/14/2021 02/14/2021 02/14/2021 11:41 AM EDT documented as of this encounter Care Teams Mottler Operator Relationship Specialty Start Date End Date Rock Bustos M.D. [address] [place] [address] PCP - General External Family Practice 03/02/16 documented as of this encounter
--- OUTSIDE RECORDS SUMMARY | 2025-03-22 11:48 | XMS_ITS | Encounter Summary ---
Author Organization [facility] Address [address] [place] [address] Care Team Providers Care Ship Cleaner Name Role Phone Rock Bustos M.D. Primary Care Provider [phone] [phone] Encounter Details Date Type Department Care Team (Late st Contact Info) Description 02/14/2021 Clinical Note [facility] Division of Dentistry [address] [place] [phone] Provider, Historical Social History Tobacco Use Types Packs/Day Years Used Date Smoking Tobacco: Never Smokeless Tobacco: Never Intimate Partner Violence Answer Date R ecorded Safe in relationship? (up to 18) Yes 08/03/2020 Safe in relationship? (18 and older) Not on file 08/03/2020 Safety and Environment Answer Date Kehinde rded Abuse or neglect worry (Parent/Guardian) No 08/03/2020 Adult hurting you or family (11-18) No 08/03/2020 Someone touched you in a sexual way? (11-18) No 08/03/2020 Someone hurting you or family (18 and older) Not on file 08/03/2020 Historical abuse worry Not on file 0 If you have firearms in the home, are they all in locked storage AND unloaded? Not on file 08/03/2020 (RETIRED 05/2022) Guns In Home Not on file 1 10/04/2019 (RETIRED 05/2022) Guns Unloaded or Locked Away N ot on file 08/03/2020 Sex and Gender Information Value Date Recorded Sex Assigned at Not on file Legal Sex Male 5:16 AM EST Gender Identity Not on file Sexual Orientation Not on file documented as of this encounter Progress Notes * Provider, Historical - 02/14/2021 12:00 AM EDT P: Dental Rehabilitation under General Anesthesia. (15-Base OR). Informed Consent obtained. PMH positive for CP, bilateral hearing loss, muscle weakness, allergies: Penicillin G. Behavior is positivefor situational anxiety.Treatment plan was discussed with parents and all concerns were addressed. ~Diagnosis: Dental Caries. Name of Operation: Dental Rehabilitation. COVID(-) per Protocol ~Surgeon/Franklyn KEATING/MARYAM (in combo with Ivette (ENT) GEMA)~Treatment: Oral ETT+IV, TP,MP,RD. Comprehensive Oral Exam. Pre-operative scrub with 1% H202. ~Pro, fluoride FOAM, radiographs (2 bwxr). ~Composites: A/E #2(O),#30(O),#19(O)~Sealants #14,15~Extractions with gelfoam hemostasis over- retained #K~Patient extubated w/o complications and transported to the PACU, where upon ~attainment of dischargecriteria will be released to care of parents ~schedule follow-up in 6months ~Recommend acetaminophen or ibuprofen q6h prn pain ~dictated & billed ~N: recall~ \.brNote authored by: Harris Keating ([email or web address]) documented in this encounter Plan of Treatment Upcoming Encounters Date Type Department Care Team (Late st Contact Info) Description 03/31/2025 10:00 AM EDT Appointment [facility] Division of Audiology [address] [place] [phone] Audiology, [facility] Tania Escobar, Kayden Discharge Disposition: Home or Self Care documented as of this encounter Visit Diagnoses Not on filedocumented in this encounter Additional Health Concerns Infection Onset Date Last Indicated Resolved Time COVID-19 Rule Out 02/14/2021 02/14/2021 02/14/2021 11:41 AM EDT documented as of this encounter Care Teams Ship Cleaner Relationship Specialty Start Date End Date Rock Bustos M.D. [address] [place] [address] PCP - General External Family Practice 03/02/16 documented as of this encounter
--- OUTSIDE RECORDS SUMMARY | 2025-03-22 11:48 | XMS_ITS | Encounter Summary ---
Author Organization [facility] Address [address] [place] [address] Care Team Providers Care Central Office Equipment Installer Name Role Phone Rock Bustos M.D. Primary Care Provider +1 -[phone] Encounter Details Date Type Department Care Team (Late st Contact Info) Description 05/11/2010 Clinical Note [facility] Division of Dentistry [address] [place] [phone] Provider, Historical Social History Tobacco Use Types Packs/Day Years Used Date Smoking Tobacco: Never Assessed Sex and Gender Information Value Date Recorded Sex Assigned at Not on file Legal Sex Male 5:16 AM EST Gender Identity Not on file Sexual Orientation Not on file documented as of this encounter Progress Notes * Provider, Historical - 05/11/2010 12:00 AM EDT P: Periodic recall exam. T: Reviewed PMH. EOE, IOE, findings as charted. Prophy, Fluoride application, OHI. E: +-, sat on dental chair, wiggly N: RTC 6 mo recall. I approve the patient-related information obtained by the retail sales assistant, hygienist, resident and/or attending pertaining to the patient's condition, findings, history and/or treatment. Note authored by: Alo Ferrara ([email or web address]) documented in this encounter Plan of Treatment Upcoming Encounters Date Type Department Care Team (Late st Contact Info) Description 03/31/2025 10:00 AM EDT Appointment [facility] Division of Audiology [address] [place] [phone] Audiology, [facility] Tania Escobar, Kayden Discharge Disposition: Home or Self Care documented as of this encounter Visit Diagnoses Not on filedocumented in this encounter Additional Health Concerns Infection Onset Date Last Indicated Resolved Time COVID-19 Rule Out 02/14/2021 02/14/2021 02/14/2021 11:41 AM EDT documented as of this encounter Care Teams Central Office Equipment Installer Relationship Specialty Start Date End Date Rock Bustos M.D. JUSTOI: [id number] [address] [place], [place] [id number] PCP - General External Family Practice 03/02/16 documented as of this encounter
--- OUTSIDE RECORDS SUMMARY | 2025-03-22 11:48 | XMS_ITS | Encounter Summary ---
Author Organization [facility] Address [address] [place] [address] Care Team Providers Care Distributor Cleaner Name Role Phone Rock Bustos M.D. Primary Care Provider +1 [phone] Encounter Details Date Type Department Care Team (Late st Contact Info) Description 12/30/2024 Orders Only [address] [phone] Timmy Geronimo Jr., M.D. Otolaryngology [address] [place] [address] [address] [place] [address] Social History Tobacco Use Types Packs/Day [...] Info) Description 03/31/2025 10:00 AM EDT Appointment [facility] Division of Audiology [address] [place] [phone] Audiology, [facility] Tania Escobar, Kayden Discharge Disposition: Home or Self Care documented as of this encounter Visit Diagnoses Not on filedocumented in this encounter Care Teams Distributor Cleaner Relationship Specialty Start Date End Date Rock Bustos M.D. [address] [place] [address] PCP - General External Family Practice 03/02/16 documented as of this encounter
--- OUTSIDE RECORDS SUMMARY | 2025-03-22 11:48 | XMS_ITS | Encounter Summary ---
Author Organization [facility] Address [address] [place] [address] Care Team Providers Care Sample Examiner Name Role Phone Rock Bustos M.D. Primary Care Provider +1 [phone] Encounter Details Date Type Department Care Team (Late st Contact Info) Description 09/24/2023 Abstract [facility] Division of Dentistry [address] [place] [phone] Provider, Historical Social History Tobacco Use Types Packs/Day Years Used Date Smoking Tobacco: Never Smokeless Tobacco: Never Intimate Partner Violence Answer Date R ecorded If you are in a relationship , do you feel safe in that relationship? Yes 09/14/2022 If you are in a relationship , do you feel safe in that relationship? Not on file 09/14/2022 Financial Resource Strain Answer Date R ecorded Financial benefits problems Not on file 09/2022 Trouble paying for things you need Not on file 12/25/2022 Trouble paying for things you need (Other) Not o n file 12/25/2022 Safety and Environment Answer Date Kehinde rded Do you have any concerns of physical abuse, sexual abuse, or neglect of your child? No 09/14/2022 Is an adult hurting you or your family? Not on f ile 09/14/2022 Has someone ever touched you in a sexual way that was not ok with you? Not on file 09/14/2022 Is someone hurting your or your family? Not on f ile 09/14/2022 Historical abuse worry Not on file 3 If you have firearms in the home, are they all in locked storage AND unloaded? Not on file 09/14/2022 Sex and Gender Information Value Date Recorded Sex Assigned at Not on file Legal Sex Male 5:16 AM EST Gender Identity Not on file Sexual Orientation Not on file documented as of this encounter Plan of Treatment Upcoming Encounters Date Type Department Care Team (Late st Contact Info) Description 03/31/2025 10:00 AM EDT Appointment [facility] Division of Audiology [address] [place] [phone] Audiology, [facility] Tania Escobar, Kayden Discharge Disposition: Home or Self Care documented as of this encounter Procedures Procedure Name Priority Date/Time Associated Diagnosis Comments 2 O WA RESIN-BASED COMPOSITE - ONE SURFACE, POSTERIOR Routine 02/14/2021 12:00 AM EDT documented in this encounter Visit Diagnoses Not on filedocumented in this encounter Care Teams Sample Examiner Relationship Specialty Start Date End Date Rock Bustos M.D. [address] [place], [place] [phone] PCP - General External Family Practice 03/02/16 documented as of this encounter
--- OUTSIDE RECORDS SUMMARY | 2025-03-22 11:48 | XMS_ITS | Encounter Summary ---
Author Organization [facility] Address [address] [place] [address] Care Team Providers Care Offset Press Operator Name Role Phone Rock Bustos M.D. Primary Care Provider +1 -[phone] Encounter Details Date Type Department Care Team (Late st Contact Info) Description 11/15/2020 Clinical Note [facility] Division of Dentistry [address] [place] [phone] Provider, Historical Social History Tobacco Use [...] encounter Progress Notes * Provider, Historical - 11/15/2020 12:00 AM EDT I was present in the clinic for the visit. I reviewed clinical findings. I agree with the resident note and was immediately available for resident supervision. ~ \.brNote authored by: Susana Howard ([email or web address]) documented in this encounter Plan of Treatment Upcoming Encounters Date Type Department Care Team (Late st Contact Info) Description 03/31/2025 10:00 AM EDT Appointment [facility] Division of Audiology [address] [place] [phone] Audiology, [facility] Tania Escobar, Kayden Discharge Disposition: Home or Self Care documented as of this encounter Visit Diagnoses Not on filedocumented in this encounter Additional Health Concerns Infection Onset Date Last Indicated Resolved Time COVID-19 Rule Out 02/14/2021 02/14/2021 02/14/2021 11:41 AM EDT documented as of this encounter Care Teams Offset Press Operator Relationship Specialty Start Date End Date Rock Bustos M.D. [address] [place] [address] PCP - General External Family Practice 03/02/16 documented as of this encounter
--- OUTSIDE RECORDS SUMMARY | 2025-03-22 11:48 | XMS_ITS | Encounter Summary ---
Author Organization [facility] Address [address] [place] [address] Care Team Providers Care Dentist/Owner Name Role Phone Rock Bustos M.D. Primary Care Provider +1 [phone] Encounter Details Date Type Department Care Team (Late st Contact Info) Description 12/07/2010 Clinical Note [facility] Division of Dentistry [address] [place] [phone] Provider, Historical Social History Tobacco Use Types Packs/Day Years Used Date Smoking Tobacco: Never Assessed Sex and Gender Information Value Date Recorded Sex Assigned at Not on file Legal Sex Male 5:16 AM EST Gender Identity Not on file Sexual Orientation Not on file documented as of this encounter Progress Notes * ProviderNichole - 12/07/2010 12:00 AM EDT Dentist/Painter Touch Up/Hygienist verified correct patient. ~~:_2004 ~~Pain?: Yes____ No _x___~Pain Score for visit:___0____~Pain Scale used: (choose one: Oucher_x__, Visual Analog Scale___, FLACC___.)~~Note authored by: Tierra Carroll ([email or web address]) documented in this encounter Plan of Treatment Upcoming Encounters Date Type Department Care Team (Late st Contact Info) Description 03/31/2025 10:00 AM EDT Appointment [facility] Division of Audiology [address] [place] [phone] Audiology, [facility] Tania Escobar, Kayden Discharge Disposition: Home or Self Care documented as of this encounter Visit Diagnoses Not on filedocumented in this encounter Additional Health Concerns Infection Onset Date Last Indicated Resolved Time COVID-19 Rule Out 02/14/2021 02/14/2021 02/14/2021 11:41 AM EDT documented as of this encounter Care Teams Dentist/Owner Relationship Specialty Start Date End Date Rock Bustos M.D. JUSTOI: [id number] [address] [place], [place] [phone] PCP - General External Family Practice 03/02/16 documented as of this encounter
--- OUTSIDE RECORDS SUMMARY | 2025-03-22 11:48 | XMS_ITS | Encounter Summary ---
Author Organization [facility] Address [address] [place] [address] Care Team Providers Care Head Charger Name Role Phone Rock Bustos M.D. Primary Care Provider +1 -[phone] Encounter Details Date Type Department Care Team (Late st Contact Info) Description 09/24/2023 Abstract [facility] Division of Dentistry [address] [place] [phone] Provider, Historical Social History Tobacco Use [...] file 12/25/2022 Safety and Environment Answer Date Kehidne rded Do you have any concerns of [...] Info) Description 03/31/2025 10:00 AM EDT Appointment [facility] Division of Audiology [address] [place] [phone] Audiology, [facility] Tania Escobar, Kayden Discharge Disposition: Home or Self Care documented as of this encounter Procedures Procedure Name Priority Date/Time Associated Diagnosis Comments 19 O WA RESIN-BASED COMPOSITE - ONE SURFACE, POSTERIOR Routine 02/14/2021 12:00 AM EDT 30 O WA RESIN-BASED COMPOSITE - ONE SURFACE, POSTERIOR Routine 02/14/2021 12:00 AM EDT WA PERIODIC ORAL EVALUATION - ESTABLISHED PATIENT Routine 12/07/2010 12:00 AM EDT documented in this encounter Visit Diagnoses Not on filedocumented in this encounter Care Teams Head Charger Relationship Specialty Start Date End Date Rock Bustos M.D. [address] [place] [address] PCP - General External Family Practice 03/02/16 documented as of this encounter
--- OUTSIDE RECORDS SUMMARY | 2025-03-22 11:48 | XMS_ITS | Encounter Summary ---
Author Organization [facility] Address [address] [place] [address] Care Team Providers Care Real Estate Intern Name Role Phone Rock Bustos M.D. Primary Care Provider +1 -[phone] Encounter Details Date Type Department Care Team (Late st Contact Info) Description 09/24/2023 Abstract [facility] Division of Dentistry [address] [place] [phone] Provider, Historical Social History Tobacco Use [...] Info) Description 03/31/2025 10:00 AM EDT Appointment [facility] Division of Audiology [address] [place] [phone] Audiology, [facility] Tania Escobar, Kayden Discharge Disposition: Home or Self Care documented as of this encounter Procedures Procedure Name Priority Date/Time Associated Diagnosis Comments TOPICAL FLUOR W/O PROPHY CHI Routine 05/11/2010 12:00 AM EDT AK COMPREHENSIVE ORAL EVALUATION - NEW OR ESTABLISHED PATIENT Routine 05/11/2010 12:00 AM EDT AK LIMITED ORAL EVALUATION - PROBLEM FOCUSED Routine 11/04/2007 12:00 AM EDT documented in this encounter Visit Diagnoses Not on filedocumented in this encounter Care Teams Real Estate Intern Relationship Specialty Start Date End Date Rock Bustos M.D. JUSTOI: [id number] [address] [place] [address] PCP - General External Family Practice 03/02/16 documented as of this encounter
--- OUTSIDE RECORDS SUMMARY | 2025-03-22 11:48 | XMS_ITS | Encounter Summary ---
Author Organization [facility] Address [address] [place] [address] Care Team Providers Care Developer Prover Upholstering Name Role Phone Rock Bustos M.D. Primary Care Provider +1 -[phone] Encounter Details Date Type Department Care Team (Late st Contact Info) Description 09/24/2023 Abstract [facility] Division of Dentistry [address] [place] [phone] Provider, Historical Social History Tobacco Use [...] Info) Description 03/31/2025 10:00 AM EDT Appointment [facility] Division of Audiology [address] [place] [phone] Audiology, [facility] Tania Escobar, Kayden Discharge Disposition: Home or Self Care documented as of this encounter Procedures Procedure Name Priority Date/Time Associated Diagnosis Comments NC COMPREHENSIVE ORAL EVALUATION - NEW OR ESTABLISHED PATIENT Routine 05/11/2010 12:00 AM EDT documented in this encounter Visit Diagnoses Not on filedocumented in this encounter Care Teams Developer Prover Upholstering Relationship Specialty Start Date End Date Rock Bustos M.D. [address] [place], [place] [phone] PCP - General External Family Practice 03/02/16 documented as of this encounter
--- OUTSIDE RECORDS SUMMARY | 2025-03-22 11:48 | XMS_ITS | Encounter Summary ---
Author Organization [facility] Address [address] [place] [address] Care Team Providers Care Diesel Engine Fitter Name Role Phone Rock Bustos M.D. Primary Care Provider +1 -[phone] Encounter Details Date Type Department Care Team (Late st Contact Info) Description 11/15/2020 Clinical Note [facility] Division of Dentistry [address] [place] [phone] Provider, Historical Social History Tobacco Use [...] Provider, Historical - 11/15/2020 12:00 AM EDT Dentist/Hospice Team Lead verified correct patient identification, procedures with materials and special equipment if needed, images or relevant labs, irrigation solutions (other than water), need for antibiotics, precautions based on medical or medication history. ~~:___2004 ~~Name of Participants in the Time Out: Petr TITUS/Cruzito HENDERSON ~~Pain?: Yes____ No __x__ ~Pain Score for visit:____0___ ~Pain Scale used: (choose one: Faces___, Numeric Rating Scale_0__,FLACC___.) \.brNote authored by: [place] ([email or web address]) documented in this encounter Plan of Treatment Upcoming Encounters Date Type Department Care Team (Late st Contact Info) Description 03/31/2025 10:00 AM EDT Appointment [facility] Division of Audiology [address] [place] [phone] Audiology, [facility] Tania Escobar AuD Discharge Disposition: Home or Self Care documented as of this encounter Visit Diagnoses Not on filedocumented in this encounter Additional Health Concerns Infection Onset Date Last Indicated Resolved Time COVID-19 Rule Out 02/14/2021 02/14/2021 02/14/2021 11:41 AM EDT documented as of this encounter Care Teams Diesel Engine Fitter Relationship Specialty Start Date End Date Rock Bustos M.D. [address] [place], [place] [phone] (work) PCP - General External Family Practice 03/02/16 documented as of this encounter
--- OUTSIDE RECORDS SUMMARY | 2025-03-22 11:48 | XMS_ITS | Encounter Summary ---
Author Organization [facility] Address [address] [place] [address] Care Team Providers Care Dog Beautician Name Role Phone Rock Bustos M.D. Primary Care Provider +1 -[phone] Encounter Details Date Type Department Care Team (Late st Contact Info) Description 11/06/[address] [facility] Division of Dentistry [address] [place] [phone] Provider, Historical Social History Tobacco Use Types Packs/Day Years Used Date Smoking Tobacco: Never Assessed Sex and Gender Information Value Date Recorded Sex Assigned at Not on file Legal Sex Male 5:16 AM EST Gender Identity Not on file Sexual Orientation Not on file documented as of this encounter Progress Notes * Provider, Historical - 11/06/2011 12:00 AM EDT Dentist/Fly Rail Operator verified correct patient identification, procedures with materials and special equipment if needed, images or relevant labs, irrigation solutions (other than water), need for antibiotics, precautions based on medical or medication history.~~:___[id number] ~~Name of Participants in the Time Out:__Fili Gallagher, SOPHIEA/ Karlos Romano, DMD ~~Pain?: Yes____ No___x_~Pain Score for visit: 0__~Pain Scale used: (choose one: Oucher___x, Visual Analog Scale___, FLACC___.)~~Note authored by: Connie Gallagher ([email or web address]) documented in this encounter Plan of Treatment Upcoming Encounters Date Type Department Care Team (Late st Contact Info) Description 03/31/2025 10:[address] [facility] Division of Audiology [address] [place] [phone] Audiology, [facility] Tania Escobar, Kayden Discharge Disposition: Home or Self Care documented as of this encounter Visit Diagnoses Not on filedocumented in this encounter Additional Health Concerns Infection Onset Date Last Indicated Resolved Time COVID-19 Rule Out 02/14/2021 02/14/2021 02/14/2021 11:41 AM EDT documented as of this encounter Care Teams Dog Beautician Relationship Specialty Start Date End Date Rock Bustos M.D. [address] [place], [place] [phone] PCP - General External Family Practice 03/02/16 documented as of this encounter
--- OUTSIDE RECORDS SUMMARY | 2025-03-22 11:48 | XMS_ITS | Encounter Summary ---
Author Organization [facility] Address [address] [place] [address] Care Team Providers Care Clerical Coordinator Name Role Phone Rock Bustos M.D. Primary Care Provider +1 -[phone] Encounter Details Date Type Department Care Team (Late st Contact Info) Description 12/07/2010 Clinical Note [facility] Division of Dentistry [address] [place] [phone] Provider, Historical Social History Tobacco Use Types Packs/Day Years Used Date Smoking Tobacco: Never Assessed Sex and Gender Information Value Date Recorded Sex Assigned at Not on file Legal Sex Male 5:16 AM EST Gender Identity Not on file Sexual Orientation Not on file documented as of this encounter Progress Notes * Provider, Historical - 12/07/2010 12:00 AM EDT P: Periodic recall exam.~T: Reviewed PMH.~EOE, IOE,~Prophy, Fluoride application, OHI.~E: ++~N: RTC6 mo recall.~~I approve the patient-related information obtained by the assistant toddler teacher, hygienist, resident and/or attending pertaining to the patient's condition, findings, history and/or treatment.~Note authored by: Oanh Issa ([email or web address]) documented in this encounter Plan of Treatment Upcoming Encounters Date Type Department Care Team (Late st Contact Info) Description 03/31/2025 10:00 AM EDT Appointment [facility] Division of Audiology [address] [place] [phone] Audiology, [facility] Tania Escobar AuD Discharge Disposition: Home or Self Care documented as of this encounter Visit Diagnoses Not on filedocumented in this encounter Additional Health Concerns Infection Onset Date Last Indicated Resolved Time COVID-19 Rule Out 02/14/2021 02/14/2021 02/14/2021 11:41 AM EDT documented as of this encounter Care Teams Clerical Coordinator Relationship Specialty Start Date End Date Rock Bustos M.D. [address] [place], [place] [phone] PCP - General External Family Practice 03/02/16 documented as of this encounter
--- OUTSIDE RECORDS SUMMARY | 2025-03-22 11:48 | XMS_ITS | Encounter Summary ---
Author Organization [facility] Address [address] [place] [address] Care Team Providers Care Ground Operations Superintendent Name Role Phone Rock Bustos M.D. Primary Care Provider +1 -[phone] Encounter Details Date Type Department Care Team (Late st Contact Info) Description 11/15/2020 Clinical Note [facility] Division of Dentistry [address] [place] [phone] Provider, Historical Social History Tobacco Use [...] Provider, Historical - 11/15/2020 12:00 AM EDT P: SHRAVAN. Accompanied by MOC.~Patient and Parent screened for COVID19 symptoms by hospital prior to arriving at dental clinic.~Oral cleanse completed by rinsing for 1 minute and expectorating/using a toothette.~Oral cleanse 1.5% H202 - as [employer] Peroxyl.~CC: He was supposed to be put to sleep a fewyears ago and we want to get that scheduled. ~Med Hx: hearing loss, CP, DD, ~Radiographs: none- unable to tolerate~Clinical exam: Generalized dental decay noted in all 4 quadrants. No intraoral swelling noted or draining abscesses. Findings as charted.~Dx: dental caries~Caries Risk: High~Reviewed treatment options and risks and benefits of general anesthesia. Recommended sedation due to extent of treatment and patient behavior.~POC understands and elected to have treatment completed under general anesthesia. Informed consent reviewed and signatures obtained.~Plan: Dental rehab under [place].~Reviewed cancellation policies with POC.~Reviewed NPO, BA, PE, and illness policies.~Required COVID test reviewed ~Notes to POC: POC understands that several teeth may require extractions, possible anterior composite white crowns, and SSCs. She understands that we are going to provide the most definitive treatment possible while in the OR. If a tooth is non-restorable, it will need to be extracted. Additional radiographs may be needed in the OR. POC understands.~Instructed POC to keep cavitated areas clean with brushing and flossing. If there are any signs of facial swelling or fever POC was instructed to seek emergency care for further evaluation.~~E: - (would open briefly but exam was limited)~~NV: Dental rehab in the OR. \.brNote authored by: Bry Humphreys ([email or web address]) documented in this encounter Plan of Treatment Upcoming Encounters Date Type Department Care Team (Late st Contact Info) Description 03/31/2025 10:00 AM EDT Appointment [facility] Division of Audiology [address] [place] [phone] Audiology, [facility] Tania Escobar AuD Discharge Disposition: Home or Self Care documented as of this encounter Visit Diagnoses Not on filedocumented in this encounter Additional Health Concerns Infection Onset Date Last Indicated Resolved Time COVID-19 Rule Out 02/14/2021 02/14/2021 02/14/2021 11:41 AM EDT documented as of this encounter Care Teams Ground Operations Superintendent Relationship Specialty Start Date End Date Rock Bustos M.D. [address] [place], [place] [phone] PCP - General External Family Practice 03/02/16 documented as of this encounter
--- OUTSIDE RECORDS SUMMARY | 2025-03-22 11:48 | XMS_ITS | Encounter Summary ---
Author Organization [facility] Address [address] [place] [address] Care Team Providers Care Anthropology Department Chair Name Role Phone Rock Bustos M.D. Primary Care Provider +1 [phone] Reason for Visit * Reason Onset Date Comments Other 12/16/2012 follow up appoin tment made Encounter Details Date Type Department Care Team (Late st Contact Info) Description 12/16/2012 Clinical Note [facility] Division of Neurology [address] [place] [phone] Radha Burns, R.N. Other (follow up appointment made) Social History Tobacco Use Types Packs/Day Years [...] 03/31/2025 10:00 AM EDT Appointment [facility] Division of Audiology [address] [place] [phone] Audiology, [facility] Tania Escobar AuD Discharge Disposition: Home or Self Care documented as of this encounter Visit Diagnoses Not on filedocumented in this encounter Additional Health Concerns Infection Onset Date Last Indicated Resolved Time COVID-19 Rule Out 02/14/2021 02/14/2021 02/14/2021 11:41 AM EDT documented as of this encounter Care Teams Anthropology Department Chair Relationship Specialty Start Date End Date Rock Bustos M.D. [address] [phone] PCP - General External Family Practice 03/02/16 documented as of this encounter
--- OUTSIDE RECORDS SUMMARY | 2025-03-22 11:48 | XMS_ITS | Encounter Summary ---
Author Organization [facility] Address [address] [place] [address] Care Team Providers Care Enrolled Agent Name Role Phone Rock Bustos M.D. Primary Care Provider +1 [phone] Encounter Details Date Type Department Care Team (Late st Contact Info) Description 01/12/2021 Orders Only [facility] Division of Pediatric Otolaryngology [address] [place] [phone] Timmy Geronimo Jr., M.D. Otolaryngology [address] [place] [address] 2017 [place] [address] Cerebral palsy, unspecified type (Primary Dx) Social History Tobacco Use Types Packs/Day Years [...] 03/31/2025 10:00 AM EDT Appointment [facility] Division of Audiology [address] [place] [phone] Audiology, [facility] Tania Escobar, Kayden Discharge Disposition: Home or Self Care documented as of this encounter Visit Diagnoses Diagnosis Cerebral palsy, unspecified type- Primary documented in this encounter Additional Health Concerns Infection Onset Date Last Indicated Resolved Time COVID-19 Rule Out 02/14/2021 02/14/2021 02/14/2021 11:41 AM EDT documented as of this encounter Care Teams Enrolled Agent Relationship Specialty Start Date End Date Rock Bustos M.D. [address] [place] [address] PCP - General External Family Practice 03/02/16 documented as of this encounter
--- OUTSIDE RECORDS SUMMARY | 2025-03-22 11:48 | XMS_ITS | Encounter Summary ---
Author Organization [facility] Address [address] [place] [address] Care Team Providers Care Concrete Spreader Name Role Phone Rock Bustos M.D. Primary Care Provider +1 -[phone] Encounter Details Date Type Department Care Team (Late st Contact Info) Description 09/24/2023 Abstract [facility] Division of Dentistry [address] [place] [phone] Provider, Historical Social History Tobacco Use [...] Info) Description 03/31/2025 10:00 AM EDT Appointment [facility] Division of Audiology [address] [place] [phone] Audiology, [facility] Tania Escobar, Kayden Discharge Disposition: Home or Self Care documented as of this encounter Procedures Procedure Name Priority Date/Time Associated Diagnosis Comments IN PERIODIC ORAL EVALUATION - ESTABLISHED PATIENT Routine 02/14/2021 12:00 AM EDT K IN EXTRACTION, ERUPTED TOOTH OR EXPOSED ROOT (ELEVATION AND/OR FORCEPS REMOVAL) Routine 10/09/2017 12:00 AM EST documented in this encounter Visit Diagnoses Not on filedocumented in this encounter Care Teams Concrete Spreader Relationship Specialty Start Date End Date Rock Bustos M.D. [address] [place], [place] [phone] PCP - General External Family Practice 03/02/16 documented as of this encounter
--- OUTSIDE RECORDS SUMMARY | 2025-03-22 11:48 | XMS_ITS | Encounter Summary ---
Author Organization [facility] Address [address] [place] [address] Care Team Providers Care Cap And Hat Production Supervisor Name Role Phone Rock Bustos M.D. Primary Care Provider +1 [phone] Encounter Details Date Type Department Care Team (Late st Contact Info) Description 12/06/2020 Orders Only [facility] [address] [place] [address] Timmy Geronimo Jr., M.D. Otolaryngology [address] [place] [address] 2017 [place] [address] Social History Tobacco Use Types [...] Info) Description 03/31/2025 10:00 AM EDT Appointment [facility] Division of Audiology [address] [place] [phone] Audiology, [facility] Tania Escobar, Kayden Discharge Disposition: Home or Self Care documented as of this encounter Visit Diagnoses Not on filedocumented in this encounter Additional Health Concerns Infection Onset Date Last Indicated Resolved Time COVID-19 Rule Out 02/14/2021 02/14/2021 02/14/2021 11:41 AM EDT documented as of this encounter Care Teams Cap And Hat Production Supervisor Relationship Specialty Start Date End Date Rock Bustos M.D. [address] [place], [place] [phone] PCP - General External Family Practice 03/02/16 documented as of this encounter
--- OUTSIDE RECORDS SUMMARY | 2025-03-22 11:48 | XMS_ITS | Clinical Summary ---
Author Organization [facility] Address [address] [place] [address] Care Team Providers Care Fruit Tester Name Role Phone Rock Bustos M.D. Primary Care Provider +1 [phone] Source Comments [facility] is fully rolled out with thefollowing exceptions:[facility] Allergies Active Allergy Reactions Criticality Noted Date Comments Bicillin L-A 11/06/2011 Mother and brother allergic Medications Pediatric Multivitamins-F l (MULTIVITAMIN/F LUORIDE PO) Take 1 Tab by mouth 1 time daily. Active See information below regarding this order pulmicort neb used at home as needed unsure of concentration Active ferrous sulfate (ABY-IN-JUSTINA) 75 (15 FE) MG/0.6ML solution Take 1 mL (25 mg total) by mouth 1 time a day. Active albuterol (PROVENTIL) (2.5 MG/3ML) 0.083% nebulizer solution 3 mL by Nebulization route 2 times daily as needed for wheezing. has home med 1 Active acetaminophen (TYLENOL) 160 MG/5ML suspension Take 8 mL by mouth every 4-6 hours as needed for pain and fever (mild). 118 mL 1 1 Active Active Problems Problem Noted Date Diagnosed Date Mixed receptive-expressive language disorder Autism spectrum disorder 02/08/2025 Other symbolic dysfunctions 02/08/2025 Pre-syncope 10/29/2022 Impairment of balance 12/28/2021 Impaired mobility and ADLs 05/23/2020 Sensorineural hearing loss, bilateral 12/29/2013 Other speech disturbance(784.59) 12/29/2013 Decreased motor activity 09/18/2012 Muscle weakness 05/07/2012 Gait abnormality 05/07/2012 Cerebral palsy 10/01/2011 Abnormal posture 10/01/2011 Regular astigmatism 04/20/2008 Specific delays in development 04/20/2008 Encounters Date Type Department Care Team Description 03/16/2025 1:00 PM EDT Therapy Visit [address] [phone] Daniela Matos M.D. Bowers, Michele, CCC-LEAD DATA ARCHITECT AT [facility] Evaluation Discharge Disposition: Home or Self Care 03/16/2025 1:00 PM EDT Therapy Visit [address] [phone] Daniela Matos M.D. Baker, Carol F., OTR/L AT [facility] Treatment/Trials Discharge Disposition: Home or Self Care 03/09/2025 2:30 PM EDT Therapy Visit [address] [phone] Daniela Matos M.D. Bowers, Michele CCC-LEAD DATA ARCHITECT AT [facility] Treatment/Trials Discharge Disposition: Home or Self Care 03/09/2025 2:30 PM EDT Therapy Visit [address] [phone] Daniela Matos M.D. Baker, Carol F., OTR/L AT [facility] Treatment/Trials Discharge Disposition: Home or Self Care 02/23/2025 2:30 PM EDT Therapy Visit [address] [phone] Daniela Matos M.D. Bowers, Michele, CCC-LEAD DATA ARCHITECT AT [facility] Treatment/Trials Discharge Disposition: Home or Self Care 02/23/2025 2:30 PM EDT Therapy Visit [address] [address] Daniela Matos M.D. Natalie Hamlin, OTR/L AT [facility] Treatment/Trials Discharge Disposition: Home or Self Care 02/16/2025 12:45 PM EDT Therapy Visit [address] [address] Daniela Matos M.D. McCoy, Jessica D., MOT,OTR/L AT Equipment Evaluation (Jeniffer Solo 613 PW - [employer] Moe Julian/Raised toilet seat and rails) Discharge Disposition: Home or Self Care 02/09/2025 12:45 PM EDT Therapy Visit [address] [address] Daniela Matos M.D. McCoy, Jessica D., MOT,OTR/L AT Equipment Evaluation (Sleep Safe low bed - [employer] [place]) Discharge Disposition: Home or Self Care 02/09/2025 8:15 AM EDT Therapy Visit [address] [address] Daniela Matos M.D. Bowers, Michele, CCC-LEAD DATA ARCHITECT AT [facility] Treatment/Trials Discharge Disposition: Home or Self Care 02/09/2025 8:15 AM EDT Therapy Visit [address] [address] Daniela Matos M.D. Baker, Carol F., OTR/L AT [facility] Evaluation Discharge Disposition: Home or Self Care 01/19/2025 10:30 AM EDT Office Visit [facility] Division of Audiology [address] [place] [phone] Audiology, [facility] Gt Del Toro AuD, ROSIO-Alejo Ahumada AuD, ROSIO-Danni Earmold Fitting Discharge Disposition: Home or Self Care 01/06/2025 Care Conference [facility] Division of Audiology [address] [place] [phone] Dolores Muir Earmold Order Form ([facility]) 12/30/2024 4:30 PM EDT Therapy Visit [address] [address] Daniela Matos M.D. McManus, Kristen, MA, CCC-LEAD DATA ARCHITECT AT Speech Evaluation Discharge Disposition: Home or Self Care 12/30/2024 Orders Only [address] [phone] Timmy Geronimo Jr., M.D. 12/23/2024 8:00 AM EDT Office Visit [facility] Division of Audiology [address] [place] [phone] Audiology, [facility] Tania Escobar AuD Hearing Aid Fitting (Fitting of replacement devices) Discharge Disposition: Home or Self Care from Last 3 Months Family History Medical History Relation Name Comments Asthma Brother Asthma Mother Asthma Sister Bleeding Disorder Neg Hx Hearing Loss Neg Hx Malignant Hyperthermia Neg Hx Relation Name Status Comments Brother Mother Sister Social History Tobacco Use Types Packs/Day Years Used Date Smoking Tobacco: Never Smokeless Tobacco: Never Tobacco Cessation:Counseling Given: Not Answered Intimate Partner Violence Answer Date R ecorded [...] on file Sexual Orientation Not on file Last Filed Vital Signs Vital Sign Reading Time Taken Comments Blood Pressure 121/77 10/29/2022 12:41 PM EST Pulse 82 10/29/2022 12:41 PM EST Temperature 37.2 C (99 F) 02/14/2021 3:00 PM EDT Respiratory Rate 20 02/14/2021 3:00 PM EDT Oxygen Saturation 99% 02/14/2021 3:0 0 PM EDT Inhaled Oxygen Concentration - - Weight 48 kg (105 lb 13.1 oz) 10:30 AM EDT Height 164 cm (5' 4.57 ) 10/29/2022 12: 41 PM EST with shoes on Body Mass Index 17.85 10/29/2022 12:41 PM EST Plan of Treatment Upcoming Encounters Date Type Department Care Team (Late st Contact Info) Description 03/31/2025 10:00 AM EDT Appointment [facility] Division of Audiology [address] [place] [phone] Audiology, [facility] Tania Escobar, Kayden Discharge Disposition: Home or Self Care Health Maintenance Due Date Last Done Comments Dental X-Ray: Full Mouth 2004 HPV IMMUNIZATION (1 - Male 3-dose series) 2019 MENINGOCOCCAL B VACCINE (1 of 2 - Standard) 2020 Dental Oral Exam 08/17/2021 02/14/2021, , 05/11/2010, Additional history exists Dental Prophylaxis 08/17/2021 02/14/2021, 0 12/07/2010, 12/07/2010, Additional history exists Dental X-Ray: Bitewings 02/15/2022 02/14/2021 COVID-19 Vaccine (1 - season) 2024 AMB SEASONAL FLU VACCINE (#1) 04/26/2025 DTAP/Tdap/Td IMMUNIZATION (7 - Td or Tdap) 02/19/2026 02/20/2016, 12/02/2009, 09/12/2005, Additional history exists HEPATITIS B IMMUNIZATION Completed 005, 2004, 2004, Additional history exists HIB IMMUNIZATION Aged Out 04/16/2005, 2004 N o longer eligible based on patient's age to complete this topic PNEUMOCOCCAL IMMUNIZATION Completed 2004, 2004, 2004, Additional history exists IPV IMMUNIZATION Completed 12/02/2009, , 2004, Additional history exists MMR IMMUNIZATION Completed 12/02/2009, 09/12/2005 VARICELLA IMMUNIZATION Completed 02/20/2016, 2004 HEPATITIS A IMMUN (OPTIONAL 2-17 YRS) Discontinued 03/31/2018, 04/05/2017 MCV4 IMMUNIZATION Completed 07/07/2020, 02/20/2016 Respiratory Syncytial Virus (RSV) <20mo Aged Out No longer eligible based on patient's age to complete this topic Medical Devices Implanted Type Area Geology Teacher Device Identifier Shelf Expiration Date Model / Serial / Lot Prosth [facility] Med - [id number] Implanted:Qty : 1 on 03/26/2008 at [facility] Otolaryngology Left: Ear GYRUS JasonDB [id number] / / [id number] Procedures Procedure Name Priority Date/Time Associated Diagnosis Comments MT PROPHYLAXIS - ADULT Routine 12:00 AM EDT MT BITEWINGS - TWO RADIOGRAPHIC IMAGES Routine 02/14/2021 12:00 AM EDT MT PERIODIC ORAL EVALUATION - ESTABLISHED PATIENT Routine 02/14/2021 12:00 AM EDT from Last 3 Months or Most Recently Relevant to Health Maintenance Insurance Member Subscriber Plan / Payer (Ef fective 2013-Present) Name:Marielos Greenberg Relation to Subscriber:Self Name:Marielos Greenberg Payer ID:[id number] (NAIC) Group ID:[id number] Type:HMO Medicaid Address: [place], [place] * Guarantor: RUBI GREENBERG Account Type Relation to Patient Date of Phone Billing Address Personal/Family [address] Member Subscriber Plan / Payer (Ef fective 2013-Present) Name:Marielos Greenberg Relation to Subscriber:Self Name:Marielos Greenberg Payer ID:[id number] (NAIC) Group ID:[id number] Type:HMO Medicaid Address: [place], [place] Care Teams Fruit Tester Relationship Specialty Start Date End Date Rock Bustos M.D. [address] [place] [address] PCP - General External Family Practice 03/02/16
--- OUTSIDE RECORDS SUMMARY | 2025-03-22 11:48 | XMS_ITS | Encounter Summary ---
Author Organization [facility] Address [address] [place] [address] Care Team Providers Care Hide Buyer Name Role Phone Rock Bustos M.D. Primary Care Provider [phone] [phone] Encounter Details Date Type Department Care Team (Late st Contact Info) Description 05/11/2010 Clinical Note [facility] Division of Dentistry [address] [place] [phone] Provider, Historical Social History Tobacco Use Types Packs/Day Years Used Date Smoking Tobacco: Never Assessed Sex and Gender Information Value Date Recorded Sex Assigned at Not on file Legal Sex Male 5:16 AM EST Gender Identity Not on file Sexual Orientation Not on file documented as of this encounter Progress Notes * Provider, Historical - 05/11/2010 12:00 AM EDT I was present for the critial portions of the appointment. I was present for the oral exam and history. I reviewed the findings and agree with the resident's assessment, treatment plan, and care provided. Note authored by: River Pitt ([email or web address]) documented in this encounter Plan of Treatment Upcoming Encounters Date Type Department Care Team (Late st Contact Info) Description 03/31/2025 10:00 AM EDT Appointment [facility] Division of Audiology [address] [place] [phone] Audiology, [facility] Tania Escobar, Kayden Discharge Disposition: Home or Self Care documented as of this encounter Visit Diagnoses Not on filedocumented in this encounter Additional Health Concerns Infection Onset Date Last Indicated Resolved Time COVID-19 Rule Out 02/14/2021 02/14/2021 02/14/2021 11:41 AM EDT documented as of this encounter Care Teams Hide Buyer Relationship Specialty Start Date End Date Rock Bustos M.D. [address] [place], [place] [phone] PCP - General External Family Practice 03/02/16 documented as of this encounter
--- OUTSIDE RECORDS SUMMARY | 2025-03-22 11:48 | XMS_ITS | Encounter Summary ---
Author Organization [facility] Address [address] [place] [address] Care Team Providers Care Posting Clerk Name Role Phone Rock Bustos M.D. Primary Care Provider +1 -[phone] Encounter Details Date Type Department Care Team (Late st Contact Info) Description 11/15/2020 Orders Only [facility] Division of Dentistry [address] [place] [phone] Provider, Dental Dental caries (Primary Dx) Social History Tobacco Use Types [...] Info) Description 03/31/2025 10:00 AM EDT Appointment [facility] Division of Audiology [address] [place] [phone] Audiology, [facility] Tania Escobar, Kayden Discharge Disposition: Home or Self Care documented as of this encounter Visit Diagnoses Diagnosis Dental caries- Primary Unspecified dental caries documented in this encounter Additional Health Concerns Infection Onset Date Last Indicated Resolved Time COVID-19 Rule Out 02/14/2021 02/14/2021 02/14/2021 11:41 AM EDT documented as of this encounter Care Teams Posting Clerk Relationship Specialty Start Date End Date Rock Bustos M.D. [address] [place] [address] PCP - General External Family Practice 03/02/16 documented as of this encounter
--- OUTSIDE RECORDS SUMMARY | 2025-03-22 11:48 | XMS_ITS | Encounter Summary ---
Author Organization [facility] Address [address] [place] [address] Care Team Providers Care Pst Supervisor Name Role Phone Rock Bustos M.D. Primary Care Provider +1 -[phone] Encounter Details Date Type Department Care Team (Late st Contact Info) Description 09/24/2023 Abstract [facility] Division of Dentistry [address] [place] [phone] Provider, Historical Social History Tobacco Use [...] Description 03/31/2025 10:00 AM EDT Appointment [facility] Division of Audiology [address] [place] [phone] Audiology, [facility] Tania Escobar, Kayden Discharge Disposition: Home or Self Care documented as of this encounter Procedures Procedure Name Priority Date/Time Associated Diagnosis Comments [place] LIMITED ORAL EVALUATION - PROBLEM FOCUSED Routine 05/16/2012 12:00 AM EDT MN LIMITED ORAL EVALUATION - PROBLEM FOCUSED Routine 11/06/2011 12:00 AM EDT MN PROPHYLAXIS - CHILD Routine 1 12:00 AM EDT MN PROPHYLAXIS - CHILD Routine 0 12:00 AM EDT documented in this encounter Visit Diagnoses Not on filedocumented in this encounter Care Teams Pst Supervisor Relationship Specialty Start Date End Date Rock Bustos M.D. [address] [place] [address] PCP - General External Family Practice 03/02/16 documented as of this encounter
--- OUTSIDE RECORDS SUMMARY | 2025-03-22 11:48 | XMS_ITS | Encounter Summary ---
Author Organization [facility] Address [address] [place] [address] Care Team Providers Care Senior Qa Automation Engineer Name Role Phone Rock Bustos M.D. Primary Care Provider +1 -[phone] Encounter Details Date Type Department Care Team (Late st Contact Info) Description 09/24/2023 Abstract [facility] Division of Dentistry [address] [place] [phone] Provider, Historical Social History Tobacco Use [...] Info) Description 03/31/2025 10:00 AM EDT Appointment [facility] Division of Audiology [address] [place] [phone] Audiology, [facility] Tania Escobar, Kayden Discharge Disposition: Home or Self Care documented as of this encounter Procedures Procedure Name Priority Date/Time Associated Diagnosis Comments [place] LIMITED ORAL EVALUATION - PROBLEM FOCUSED Routine 11/15/2020 12:00 AM EDT documented in this encounter Visit Diagnoses Not on filedocumented in this encounter Care Teams Senior Qa Automation Engineer Relationship Specialty Start Date End Date Rock Bustos M.D. [address] [place], [place] [phone] PCP - General External Family Practice 03/02/16 documented as of this encounter
--- OUTSIDE RECORDS SUMMARY | 2025-03-22 11:48 | XMS_ITS | Encounter Summary ---
Author Organization [facility] Address [address] [place] [address] Care Team Providers Care Director Of Rehabilitation And Wellness Name Role Phone Rock Bustos M.D. Primary Care Provider +1 -[phone] Encounter Details Date Type Department Care Team (Late st Contact Info) Description 05/11/2010 Clinical Note [facility] Division of Dentistry [address] [place] [phone] Provider, Historical Social History Tobacco Use Types Packs/Day Years Used Date Smoking Tobacco: Never Assessed Sex and Gender Information Value Date Recorded Sex Assigned at Not on file Legal Sex Male 5:16 AM EST Gender Identity Not on file Sexual Orientation Not on file documented as of this encounter Progress Notes * Provider, Historical - 05/11/2010 12:00 AM EDT Dentist/Hot Saw Helper/Hygienist verified correct patient. :____2004 Pain?: Yes____ No __x__ Pain Score for visit: Pain Scale used: (choose one: Oucher___, Visual Analog Scale___, FLACC___.) Note authored by: Debra Valdez ([email or web address]) documented in this encounter Plan of Treatment Upcoming Encounters Date Type Department Care Team (Late st Contact Info) Description 03/31/2025 10:00 AM EDT Appointment [facility] Division of Audiology [address] [place] [phone] Audiology, [facility] Tania Escobar, Kayden Discharge Disposition: Home or Self Care documented as of this encounter Visit Diagnoses Not on filedocumented in this encounter Additional Health Concerns Infection Onset Date Last Indicated Resolved Time COVID-19 Rule Out 02/14/2021 02/14/2021 02/14/2021 11:41 AM EDT documented as of this encounter Care Teams Director Of Rehabilitation And Wellness Relationship Specialty Start Date End Date Rock Bustos M.D. [address] [place], [place] [phone] PCP - General External Family Practice 03/02/16 documented as of this encounter
--- OUTSIDE RECORDS SUMMARY | 2025-03-22 11:48 | XMS_ITS | Encounter Summary ---
Author Organization [facility] Address [address] [place] [address] Care Team Providers Care Industrial Automation Engineer Name Role Phone Rock Bustos M.D. Primary Care Provider +1 -[phone] Encounter Details Date Type Department Care Team (Late st Contact Info) Description 09/24/2023 Abstract [facility] Division of Dentistry [address] [place] [phone] Provider, Historical Social History Tobacco Use [...] 03/31/2025 10:00 AM EDT Appointment [facility] Division of Audiology [address] [place] [phone] Audiology, [facility] Tania Escobar, Kayden Discharge Disposition: Home or Self Care documented as of this encounter Procedures Procedure Name Priority Date/Time Associated Diagnosis Comments TOPICAL FLUOR W/O PROPHY CHI Routine 12/07/2010 12:00 AM EDT documented in this encounter Visit Diagnoses Not on filedocumented in this encounter Care Teams Industrial Automation Engineer Relationship Specialty Start Date End Date Rock Bustos M.D. [address] [place], [place] [phone] PCP - General External Family Practice 03/02/16 documented as of this encounter
--- OUTSIDE RECORDS SUMMARY | 2025-03-22 11:48 | XMS_ITS | Encounter Summary ---
Author Organization [facility] Address [address] [place] [address] Care Team Providers Care Material Expeditor Name Role Phone Rock Bustos M.D. Primary Care Provider +1 [phone] Encounter Details Date Type Department Care Team (Late st Contact Info) Description 09/24/2023 Abstract [facility] Division of Dentistry [address] [place] [phone] Provider, Historical Social History Tobacco Use [...] Info) Description 03/31/2025 10:00 AM EDT Appointment [facility] Division of Audiology [address] [place] [phone] Audiology, [facility] Tania Escobar, Kayden Discharge Disposition: Home or Self Care documented as of this encounter Procedures Procedure Name Priority Date/Time Associated Diagnosis Comments NE LIMITED ORAL EVALUATION - PROBLEM FOCUSED Routine 10/18/2022 12:00 AM EST NE PROPHYLAXIS - ADULT Routine 12:00 AM EDT documented in this encounter Visit Diagnoses Not on filedocumented in this encounter Care Teams Material Expeditor Relationship Specialty Start Date End Date Rock Bustos M.D. [address] [place], [place] [phone] PCP - General External Family Practice 03/02/16 documented as of this encounter
--- OUTSIDE RECORDS SUMMARY | 2025-03-22 11:48 | XMS_ITS | Encounter Summary ---
Author Organization [facility] Address [address] [place] [address] Care Team Providers Care Photovoltaic Subcontractor Name Role Phone Rock Bustos M.D. Primary Care Provider +1 [phone] Encounter Details Date Type Department Care Team (Late st Contact Info) Description 09/24/2023 Abstract [facility] Division of Dentistry [address] [place] [phone] Provider, Historical Social History Tobacco Use [...] Description 03/31/2025 10:00 AM EDT Appointment [facility] Division of Audiology [address] [place] [phone] Audiology, [facility] Tania Escobar, Kayden Discharge Disposition: Home or Self Care documented as of this encounter Procedures Procedure Name Priority Date/Time Associated Diagnosis Comments ID BITEWINGS - TWO RADIOGRAPHIC IMAGES Routine 02/14/2021 12:00 AM EDT ID LIMITED ORAL EVALUATION - PROBLEM FOCUSED Routine 10/09/2017 12:00 AM EST ID PROPHYLAXIS - CHILD Routine 1 12:00 AM EDT documented in this encounter Visit Diagnoses Not on filedocumented in this encounter Care Teams Photovoltaic Subcontractor Relationship Specialty Start Date End Date Rock Bustos M.D. [address] [place] [address] PCP - General External Family Practice 03/02/16 documented as of this encounter
--- OUTSIDE RECORDS SUMMARY | 2025-03-22 11:48 | XMS_ITS | Encounter Summary ---
Author Organization [facility] Address [address] [place] [address] Care Team Providers Care Water Systems Engineer Name Role Phone Rock Bustos M.D. Primary Care Provider +1 [phone] Encounter Details Date Type Department Care Team (Late st Contact Info) Description 11/04/2007 Clinical Note [facility] Division of Dentistry [address] [place] [phone] Provider, Historical Social History Tobacco Use Types Packs/Day Years Used Date Smoking Tobacco: Never Assessed Sex and Gender Information Value Date Recorded Sex Assigned at Not on file Legal Sex Male 5:16 AM EST Gender Identity Not on file Sexual Orientation Not on file documented as of this encounter Progress Notes * Provider, Historical - 11/04/2007 12:00 AM EDT P: limited oral eval~T: reviewed mdhx. limited oral eval (screening). referal from ENT because of tooth decay. [facility] reports pt being jaundice twice shortly after . all primary teeth are hypoplastic and dark yellow in appearance. no decay. it was decided to monitor all teeth. ~E: +/-~N: pt recently recieved F- at a [facility] appt. pt to return for INVESTMENT ADVISOR exam, prophy, and F- in three months. ~~I approvethe patient-related information obtained by the events administrative assistant, hygienist, resident and/or attending pertaining to the patient's condition, findings, history and/or treatment.~Note authored by: Alejo Arteaga ([email or web address]) documented in this encounter Plan of Treatment Upcoming Encounters Date Type Department Care Team (Late st Contact Info) Description 03/31/2025 10:00 AM EDT Appointment [facility] Division of Audiology [address] [place] [phone] Audiology, [facility] Tania Escobar AuD Discharge Disposition: Home or Self Care documented as of this encounter Visit Diagnoses Not on filedocumented in this encounter Additional Health Concerns Infection Onset Date Last Indicated Resolved Time COVID-19 Rule Out 02/14/2021 02/14/2021 02/14/2021 11:41 AM EDT documented as of this encounter Care Teams Water Systems Engineer Relationship Specialty Start Date End Date Rock Bustos M.D. [address] [place] [address] PCP - General External Family Practice 03/02/16 documented as of this encounter
--- OUTSIDE RECORDS SUMMARY | 2025-03-22 11:49 | XMS_ITS | Encounter Summary ---
Author Organization [facility] Address [address] [place] [address] Care Team Providers Care Animal Attendant Name Role Phone Rock Bustos M.D. Primary Care Provider [phone] [phone] Encounter Details Date Type Department Care Team (Late st Contact Info) Description 01/12/2021 Orders Only [facility] Division of Pediatric Otolaryngology [address] [place] [phone] Timmy Geronimo Jr., M.D. Otolaryngology [address] [place] [address] [address] [place] [phone] Cerebral palsy, unspecified type (Primary [...] 03/31/2025 10:00 AM EDT Appointment [facility] Division of Audiology [address] [place] [phone] Audiology, [facility] Tania Escobar, Kayden Discharge Disposition: Home or Self Care documented as of this encounter Visit Diagnoses Diagnosis Cerebral palsy, unspecified type- Primary documented in this encounter Additional Health Concerns Infection Onset Date Last Indicated Resolved Time COVID-19 Rule Out 02/14/2021 02/14/2021 02/14/2021 11:41 AM EDT documented as of this encounter Care Teams Animal Attendant Relationship Specialty Start Date End Date Rock Bustos M.D. [address] [place] [address] PCP - General External Family Practice 03/02/16 documented as of this encounter
--- OUTSIDE RECORDS SUMMARY | 2025-03-22 11:49 | XMS_ITS | Encounter Summary ---
Author Organization [facility] Address [address] [place] [address] Care Team Providers Care Director Of Restaurants Name Role Phone Rock Bustos M.D. Primary Care Provider +1 [phone] Encounter Details Date Type Department Care Team (Late st Contact Info) Description 05/16/2012 Clinical Note [facility] Division of Dentistry [address] [place] [phone] Provider, Historical Social History Tobacco Use Types Packs/Day Years Used Date Smoking Tobacco: Never Assessed Sex and Gender Information Value Date Recorded Sex Assigned at Not on file Legal Sex Male 5:16 AM EST Gender Identity Not on file Sexual Orientation Not on file documented as of this encounter Progress Notes * Provider, Nichole - 05/16/2012 12:00 AM EDT I was present for the visit. Reviewed the findings. Agree with treatment plan.~Note authored by: Jesus Chandler ([email or web address]) documented in this encounter Plan of Treatment Upcoming Encounters Date Type Department Care Team (Late st Contact Info) Description 03/31/2025 10:00 AM EDT Appointment [facility] Division of Audiology [address] [place] [phone] Audiology, [facility] Tania Escobar, Kayden Discharge Disposition: Home or Self Care documented as of this encounter Visit Diagnoses Not on filedocumented in this encounter Additional Health Concerns Infection Onset Date Last Indicated Resolved Time COVID-19 Rule Out 02/14/2021 02/14/2021 02/14/2021 11:41 AM EDT documented as of this encounter Care Teams Director Of Restaurants Relationship Specialty Start Date End Date Rock Bustos M.D. [address] [place] [address] PCP - General External Family Practice 03/02/16 documented as of this encounter
--- OUTSIDE RECORDS SUMMARY | 2025-03-22 11:49 | XMS_ITS | Encounter Summary ---
Author Organization [facility] Address [address] [place] [address] Care Team Providers Care Online Activist Name Role Phone Rock Bustos M.D. Primary Care Provider +1 [phone] Encounter Details Date Type Department Care Team (Late st Contact Info) Description 10/18/2022 Clinical Note [facility] Division of Dentistry [address] [place] [phone] Provider, Historical Social History Tobacco Use Types Packs/Day Years Used Date Smoking Tobacco: Never Smokeless Tobacco: Never Intimate Partner Violence Answer Date R ecorded If you are in a relationship , do you feel safe in that relationship? Yes 09/14/2022 If you are in a relationship , do you feel safe in that relationship? Not on file 09/14/2022 Safety and Environment Answer Date Kehinde rded [...] 09/14/2022 Historical abuse worry Not on file If [...] this encounter Progress Notes * ProviderNichole - 10/18/2022 12:00 AM EST I was present in the clinic/operating room for the visit. I reviewed clinical and radiographic findings. I agree with the resident note and was immediately available for resident supervision. ~ Note authored by: Joseph Varghese ([email or web address]) documented in this encounter Plan of Treatment Upcoming Encounters Date Type Department Care Team (Late st Contact Info) Description 03/31/2025 10:00 AM EDT Appointment [facility] Division of Audiology [address] [place] [phone] Audiology, [facility] Tania Escobar, Kayden Discharge Disposition: Home or Self Care documented as of this encounter Visit Diagnoses Not on filedocumented in this encounter Care Teams Online Activist Relationship Specialty Start Date End Date Rock Bustos M.D. [address] [place], [place] [phone] PCP - General External Family Practice 03/02/16 documented as of this encounter
--- OUTSIDE RECORDS SUMMARY | 2025-03-22 11:49 | XMS_ITS | Encounter Summary ---
Author Organization [facility] Address [address] [place] [address] Care Team Providers Care Gold Layer Name Role Phone Rock Bustos M.D. Primary Care Provider +1 -[phone] Encounter Details Date Type Department Care Team (Late st Contact Info) Description 05/16/2012 Clinical Note [facility] Division of Dentistry [address] [place] [phone] Provider, Historical Social History Tobacco Use Types Packs/Day Years Used Date Smoking Tobacco: Never Assessed Sex and Gender Information Value Date Recorded Sex Assigned at Not on file Legal Sex Male 5:16 AM EST Gender Identity Not on file Sexual Orientation Not on file documented as of this encounter Progress Notes * Provider, Historical - 05/16/2012 12:00 AM EDT P: Emergency. CC: I think my son's tooth hurts. He keeps pointing to the top left of his mouth. ~T:RPMH (GERD, history of PDA, devel delay, asthma, CP)~ ~IOE: #D and #G have recently exfoliated. No caries noted throughout dentition. ~-informed MOC that everything appears WNL and that he recently lost one of his baby teeth on the top left. Informed mom that pt may be experiencing some soreness ashis permanent teeth come in. Advised to continue to monitor and use ibuprofen as needed prn pain. ~~E: ++~N: checkup and prophy~~I approve the patient-related information obtained by the commercial assistant, hygienist, resident and/or attending pertaining to the patient's condition, findings, history and/or treatment.~Note authored by: Reba Dow ([email or web address]) documented in this encounter Plan of Treatment Upcoming Encounters Date Type Department Care Team (Late st Contact Info) Description 03/31/2025 10:00 AM EDT Appointment [facility] Division of Audiology [address] [place] [phone] Audiology, [facility] Tania Escobar, Kayden Discharge Disposition: Home or Self Care documented as of this encounter Visit Diagnoses Not on filedocumented in this encounter Additional Health Concerns Infection Onset Date Last Indicated Resolved Time COVID-19 Rule Out 02/14/2021 02/14/2021 02/14/2021 11:41 AM EDT documented as of this encounter Care Teams Gold Layer Relationship Specialty Start Date End Date Rock Bustos M.D. [address] [place], [place] [phone] PCP - General External Family Practice 03/02/16 documented as of this encounter
--- OUTSIDE RECORDS SUMMARY | 2025-03-22 11:49 | XMS_ITS | Encounter Summary ---
Author Organization [facility] Address [address] [place] [address] Care Team Providers Care Barytes Grinder Name Role Phone Rock Bustos M.D. Primary Care Provider +1 -[phone] Encounter Details Date Type Department Care Team (Late st Contact Info) Description 10/09/2017 Clinical Note [facility] Division of Dentistry [address] [place] [phone] Provider, Historical Social History Tobacco Use Types Packs/Day Years Used Date Smoking Tobacco: Never Sex and Gender Information Value Date Recorded Sex Assigned at Not on file Legal Sex Male 5:16 AM EST Gender Identity Not on file Sexual Orientation Not on file documented as of this encounter Progress Notes * Provider, Historical - 10/09/2017 12:00 AM EST P: NPE/Limited Oral Evaluation ~T: Reviewed PMH. CP, bilateral hearing loss, muscle weakness, allergies: Penicillin G~CC: We are going under general anesthesia to have his ears tested and his doctorthought it would be good to come here and see if he can have dental work done too ~patient is in 0/10 pain, no problems sleeping, eating or drinking. MOC denies report of facial swelling or fever. ~EOE: No swelling, no asymmetry, no lymphadenopathy~IOE: No swelling, no asymmtery, no intraoral soft tissue or hard tissue pathology~-No sign of periodontal abscess~-Mixed dentition~-No radiographs taken due to behavior and medical condition~-All findings and caries charted ~-Since patient hasn't had dental exam/cleaning since 2011 and there are several carious teeth with shadowing present I Recommended OR with [facility] was the best treatment option for him. MOC understood that this would be in coordination with Otolaryngology and agreed to proceed with GA.~Discussed OR policies: NPO/2ad/BA/Ill/PE. Emphasized importance of H&P and NPO. ~E:+ (opened for exam) ~N: FMDR in OR under [place]. ~I approve the patient-related information obtained by the ophthalmic assistant, hygienist, resident and/or attending pertaining to the patient's condition, findings, history and/or treatment.~Note authored by: Payton Kirby ([email or web address]) documented in this encounter Plan of Treatment Upcoming Encounters Date Type Department Care Team (Late st Contact Info) Description 03/31/2025 10:00 AM EDT Appointment [facility] Division of Audiology [address] [place] [phone] Audiology, [facility] Tania Escobar, Kayden Discharge Disposition: Home or Self Care documented as of this encounter Visit Diagnoses Not on filedocumented in this encounter Additional Health Concerns Infection Onset Date Last Indicated Resolved Time COVID-19 Rule Out 02/14/2021 02/14/2021 02/14/2021 11:41 AM EDT documented as of this encounter Care Teams Barytes Grinder Relationship Specialty Start Date End Date Rock Bustos M.D. [address] [place] [address] PCP - General External Family Practice 03/02/16 documented as of this encounter
--- OUTSIDE RECORDS SUMMARY | 2025-03-22 11:49 | XMS_ITS | Encounter Summary ---
Author Organization [facility] Address [address] [place] [address] Care Team Providers Care Director Of Product Marketing Name Role Phone Rock Bustos M.D. Primary Care Provider +1 -[phone] Encounter Details Date Type Department Care Team (Late st Contact Info) Description 10/18/2022 Clinical Note [facility] Division of Dentistry [address] [place] [phone] Provider, Historical Social History Tobacco Use [...] encounter Progress Notes * Provider, Nichole - 10/18/2022 12:00 AM EST Dentist/Advertising Rep verified correct patient identification, procedures with materials and special equipment if needed, images or relevant labs, irrigation solutions (other than water), need for antibiotics, precautions based on medical or medication history. ~~:_2004 ~~Name of Participants in the Time Out:__Dr. Vincenzo TITUS, Ephraim MATOS, [facility] ~~Pain?: Yes____ No _x___ ~Pain Score for visit: ~Pain Scale used: (choose one: Faces___, Numeric Rating Scale_x__, FLACC___.) ~ Note authored by: Sonja Ye ([email or web address]) documented in this encounter Plan of Treatment Upcoming Encounters Date Type Department Care Team (Late st Contact Info) Description 03/31/2025 10:00 AM EDT Appointment [facility] Division of Audiology [address] [place] [phone] Audiology, [facility] Tania Escobar AuD Discharge Disposition: Home or Self Care documented as of this encounter Visit Diagnoses Not on filedocumented in this encounter Care Teams Director Of Product Marketing Relationship Specialty Start Date End Date Rock Bustos M.D. [address] [place] [address] PCP - General External Family Practice 03/02/16 documented as of this encounter
--- OUTSIDE RECORDS SUMMARY | 2025-03-22 11:49 | XMS_ITS | Encounter Summary ---
Author Organization [facility] Address [address] [place] [address] Care Team Providers Care All Terrain Vehicle Technician Name Role Phone Rock Bustos M.D. Primary Care Provider +1 -[phone] Encounter Details Date Type Department Care Team (Late st Contact Info) Description 10/18/2022 Clinical Note [facility] Division of Dentistry [address] [place] [phone] Provider, Historical Social History Tobacco Use [...] encounter Progress Notes * Provider, Historical - 10/18/2022 12:00 AM EST Limited Patient Exam~Patient here with [facility] CC: He has been complaining of pain for a week. He keeps pointing to his lower right. (points to #T). Has had some trouble eating. ~Reviewed PMH + for: cerebral palsy, developmental delay, sensorineural hearing loss, allergy to Penicillin G Benzathine ~~EOE: No asymmetry, no lymphadenopathy, no swellings. TMJ functions normally. No popping or clicking.~IOE: Soft tissues: no swelling, asymmetry, or pathology observed. Oral hygiene is poor.~Hard tissues: Mixed dentition (#J and #T still present, likely no successor but no radiographs to confirm this). Caries noted #12-O, #23-M, #24-D, incipient #26-D.~Radiographic findings: none taken, unable to co operate~Diagnosis: Multiple dental caries, plaque induced gingivitis~~Treatment: Exam~~Discussion: Explained to [facility] that upon exam there is nothing contributing to pain on the lower right, but I was able to identify cavities and retained primary teeth. Discussed treatment options. Due to extent of treatment and acute situational anxiety, recommended treatment in OR under [place].~~MO understands that several teeth will receive white fillings due to cavities. [facility] understands that we are going to provide the most definitive treatment possible while in the OR. If a tooth is non-restorable, it will need to be extracted. Radiographs will be needed in the OR which should help rule in/out his source of dental pain on the lower right. ~Informed [facility] treatment plan is subject to change on day of treatme nt based on radiographic findings and updated clinical exam. ~Reviewed all Pre- op instructions. Discussed OR policies: NPO/2ad/H+P. Signed all required forms and reviewed all requirements.~~Beh: + did very well for his exam today, completed exam with him sitting up, he is such a happy katie, smiles often~FACILITIES MANAGER: High~NV: FMDR in OR - per BST, Base OR only~Radiographic prescription for next recall: None~I approve the patient-related information obtained by the wet process assistant head miller, hygienist, resident and/or attending pertaining to the patient's condition, findings, history and/or treatment. Note authored by: Karin Loya ([email or web address]) documented in this encounter Plan of Treatment Upcoming Encounters Date Type Department Care Team (Late st Contact Info) Description 03/31/2025 10:00 AM EDT Appointment [facility] Division of Audiology [address] [place] [phone] Audiology, [facility] Tania Escobar, Kayden Discharge Disposition: Home or Self Care documented as of this encounter Visit Diagnoses Not on filedocumented in this encounter Care Teams All Terrain Vehicle Technician Relationship Specialty Start Date End Date Rock Bustos M.D. [address] [place], [place] [phone] PCP - General External Family Practice 03/02/16 documented as of this encounter
--- OUTSIDE RECORDS SUMMARY | 2025-03-22 11:49 | XMS_ITS | Encounter Summary ---
Author Organization [facility] Address [address] [place] [address] Care Team Providers Care Diabetologist Name Role Phone Rock Bustos M.D. Primary Care Provider +1 [phone] Encounter Details Date Type Department Care Team (Late st Contact Info) Description 10/09/2017 Clinical Note [facility] Division of Dentistry [address] [place] [phone] Provider, Nichole Social History Tobacco Use Types Packs/Day Years Used Date Smoking Tobacco: Never Sex and Gender Information Value Date Recorded Sex Assigned at Not on file Legal Sex Male 5:16 AM EST Gender Identity Not on file Sexual Orientation Not on file documented as of this encounter Progress Notes * ProviderNichole - 10/09/2017 12:00 AM EST I was present in the clinic for the visit. I reviewed clinical and radiographic findings. I agree with the resident note and was immediately available for resident supervision. ~Note authored by: Oanh Limon ([email or web address]) documented in this encounter Plan of Treatment Upcoming Encounters Date Type Department Care Team (Late st Contact Info) Description 03/31/2025 10:00 AM EDT Appointment [facility] Division of Audiology [address] [place] [phone] Audiology, [facility] Tania Escobar, Kayden Discharge Disposition: Home or Self Care documented as of this encounter Visit Diagnoses Not on filedocumented in this encounter Additional Health Concerns Infection Onset Date Last Indicated Resolved Time COVID-19 Rule Out 02/14/2021 02/14/2021 02/14/2021 11:41 AM EDT documented as of this encounter Care Teams Diabetologist Relationship Specialty Start Date End Date Rock Bustos M.D. NPDesean: [phone] [address] [place] [address] PCP - General External Family Practice 03/02/16 documented as of this encounter
--- OUTSIDE RECORDS SUMMARY | 2025-03-22 11:49 | XMS_ITS | Encounter Summary ---
Author Organization [facility] Address [address] [place] [address] Care Team Providers Care Speech And Hearing Director Name Role Phone Rock Bustos M.D. Primary Care Provider [phone] Encounter Details Date Type Department Care Team (Late st Contact Info) Description 10/09/2017 Clinical Note [facility] Division of Dentistry [address] [place] [phone] Provider, Historical Social History Tobacco Use Types Packs/Day Years Used Date Smoking Tobacco: Never Sex and Gender Information Value Date Recorded Sex Assigned at Not on file Legal Sex Male 5:16 AM EST Gender Identity Not on file Sexual Orientation Not on file documented as of this encounter Progress Notes * Provider, Historical - 10/09/2017 12:00 AM EST Dentist/Component Assembler Supervisor verified correct patient identification, procedures with materials and special equipment if needed, images or relevant labs, irrigation solutions (other than water), need for antibiotics, precautions based on medical or medication history. ~~:_2004 ~~Name of Participants in the Time Out:__TAMI Kendall/Payton Kirby,LAURA/MOAmber ~~Pain?: Yes____ No __x__ ~Pain Score for visit: ~Pain Scale used: (choose one: Faces___, Numeric Rating Scale___, FLACC___.) ~Note authored by: Estephanie Goldman ([email or web address]) documented in this encounter Plan of Treatment Upcoming Encounters Date Type Department Care Team (Late st Contact Info) Description 03/31/2025 10:00 AM EDT Appointment [facility] Division of Audiology [address] [place] [phone] Audiology, [facility] Tania Escobar, Kayden Discharge Disposition: Home or Self Care documented as of this encounter Visit Diagnoses Not on filedocumented in this encounter Additional Health Concerns Infection Onset Date Last Indicated Resolved Time COVID-19 Rule Out 02/14/2021 02/14/2021 02/14/2021 11:41 AM EDT documented as of this encounter Care Teams Speech And Hearing Director Relationship Specialty Start Date End Date Rock Bustos M.D. JUSTOI: [id number] [address] [place], [place] [id number] PCP - General External Family Practice 03/02/16 documented as of this encounter
--- OUTSIDE RECORDS SUMMARY | 2025-03-22 11:49 | XMS_ITS | Encounter Summary ---
Author Organization [facility] Address [address] [place] [address] Care Team Providers Care Watermelon Harvesting Supervisor Name Role Phone Rock Bustos M.D. Primary Care Provider [phone] Encounter Details Date Type Department Care Team (Late st Contact Info) Description 11/12/2022 Clinical Note [facility] Division of Dentistry [address] [place] [phone] Provider, Historical Social History Tobacco Use [...] encounter Progress Notes * Provider, Historical - 11/12/2022 12:00 AM EDT Called [facility] to explain that unfortunately we cannot proceed with scheduling his dental surgery untilshe obtains adult guardianship. Marielos is now 17 and non- verbal. Though he has an awareness of dental pain and can point to where he is in pain and awareness of the role of a dentist, in my professional opinion he is unable to sign consent for general anesthesia with full understanding of the ris ks and benefits involved. ~~MOC was frustrated but ultimately understanding and will proceed with getting adult guardianship from the court system. She understands that we cannot schedule the surgeryuntil the paperwork is finalized. [facility] has requested combo with ENT to have his ears cleaned if possible. I said we would try as this a service we often combo with but no promises. Note authored by: Karin Loya ([email or web address]) documented in this encounter Plan of Treatment Upcoming Encounters Date Type Department Care Team (Late st Contact Info) Description 03/31/2025 10:00 AM EDT Appointment [facility] Division of Audiology [address] [place] [phone] Audiology, [facility] Tania Escobar, Kayden Discharge Disposition: Home or Self Care documented as of this encounter Visit Diagnoses Not on filedocumented in this encounter Care Teams Watermelon Harvesting Supervisor Relationship Specialty Start Date End Date Rock Bustos M.D. [address] [place], [place] [id number] PCP - General External Family Practice 03/02/16 documented as of this encounter
--- OUTSIDE RECORDS SUMMARY | 2025-03-22 11:49 | XMS_ITS | Encounter Summary ---
Author Organization [facility] Address [address] [place] [address] Care Team Providers Care Grain Oilseed Or Pasture Farm Worker Name Role Phone Rock Bustos M.D. Primary Care Provider [phone] Encounter Details Date Type Department Care Team (Late st Contact Info) Description 10/19/2022 Clinical Note [facility] Division of Dentistry [address] [place] [phone] Provider, Historical Social History Tobacco Use [...] encounter Progress Notes * Provider, Historical - 10/19/2022 12:00 AM EST Karina Huerta, DRAFTER LANDSCAPE-TEST EXAMINER Susan House; Zora Chaudhari; Miki Vee Behavior Planning Pool~This patient has been approved to be scheduled at Anesthesia Scheduling Location: BST SDS prep with procedure in PC - (traffic light icon) Per Fili Wagner. Note authored by: Zora Chaudhari ([email or web address]) documented in this encounter Plan of Treatment Upcoming Encounters Date Type Department Care Team (Late st Contact Info) Description 03/31/2025 10:00 AM EDT Appointment [facility] Division of Audiology [address] [place] [phone] Audiology, [facility] Tania Escobar, Kayden Discharge Disposition: Home or Self Care documented as of this encounter Visit Diagnoses Not on filedocumented in this encounter Care Teams Grain Oilseed Or Pasture Farm Worker Relationship Specialty Start Date End Date Rock Bustos M.D. [address] [place], [place] [phone] PCP - General External Family Practice 03/02/16 documented as of this encounter
--- OUTSIDE RECORDS SUMMARY | 2025-03-22 11:49 | XMS_ITS | Encounter Summary ---
Author Organization [facility] Address [address] [place] [address] Care Team Providers Care Financial Accountant Name Role Phone Rock Bustos M.D. Primary Care Provider [phone] Reason for Visit * Reason Onset Date Comments Other 06/09/2012 Encounter Details Date Type Department Care Team (Late st Contact Info) Description 06/09/2012 Clinical Note [facility] Division of Audiology [address] [place] [phone] Denisse Marcelo Other Social History Tobacco Use Types Packs/Day Years [...] Info) Description 03/31/2025 10:00 AM EDT Appointment [facility] Division of Audiology [address] [place] [phone] Audiology, [facility] Tania Escobar AuD Discharge Disposition: Home or Self Care documented as of this encounter Visit Diagnoses Not on filedocumented in this encounter Additional Health Concerns Infection Onset Date Last Indicated Resolved Time COVID-19 Rule Out 02/14/2021 02/14/2021 02/14/2021 11:41 AM EDT documented as of this encounter Care Teams Financial Accountant Relationship Specialty Start Date End Date Rock Bustos M.D. [address] [place] [address] PCP - General External Family Practice 03/02/16 documented as of this encounter
--- OUTSIDE RECORDS SUMMARY | 2025-03-22 11:50 | XMS_ITS | Encounter Summary ---
Author Organization [facility] Address [address] [place] [address] Care Team Providers Care Agriculture Laboratory Technician Name Role Phone Rock Bustos M.D. Primary Care Provider [phone] Encounter Details Date Type Department Care Team (Late st Contact Info) Description 11/06/2011 Clinical Note [facility] Division of Dentistry [address] [place] [phone] Provider, Historical Social History Tobacco Use Types Packs/Day Years Used Date Smoking Tobacco: Never Assessed Sex and Gender Information Value Date Recorded Sex Assigned at Not on file Legal Sex Male 5:16 AM EST Gender Identity Not on file Sexual Orientation Not on file documented as of this encounter Progress Notes * Provider, Historical - 11/06/2011 12:00 AM EDT P: Emergency~T: [facility], positive for asthma, CP, GERD, non-verbal~Twin had dental surgery today. MOC reports pt has been hold different areas of his mouth- abnormal behavior for the pt. ~EOE: WNL, IOE:un-remarkable, no caries noted, no gingival inflammation or infection noted. #19, 30 partial eruption. #D, G, N- mobile~Discussed findings with MOC- lots of changes in mouth, recommended ibuprofen ifneeded. ~E: ++, happy~N: RTC for 6 mo recall~~I approve the patient- related information obtained bythe certified teacher assistant, hygienist, resident and/or attending pertaining to the patient's condition, findings, history and/or treatment.~Note authored by: Tania Romano ([email or web address]) documented in this encounter Plan of Treatment Upcoming Encounters Date Type Department Care Team (Late st Contact Info) Description 03/31/2025 10:00 AM EDT Appointment [facility] Division of Audiology [address] [place] [phone] Audiology, [facility] Tania Escobar, AuD Discharge Disposition: Home or Self Care documented as of this encounter Visit Diagnoses Not on filedocumented in this encounter Additional Health Concerns Infection Onset Date Last Indicated Resolved Time COVID-19 Rule Out 02/14/2021 02/14/2021 02/14/2021 11:41 AM EDT documented as of this encounter Care Teams Agriculture Laboratory Technician Relationship Specialty Start Date End Date Rock Bustos M.D. [address] [place] [address] PCP - General External Family Practice 03/02/16 documented as of this encounter
--- OUTSIDE RECORDS SUMMARY | 2025-03-22 11:50 | XMS_ITS | Encounter Summary ---
Author Organization [facility] Address [address] [place] [address] Care Team Providers Care Rotating Equipment Engineer Name Role Phone Rock Bustos M.D. Primary Care Provider [phone] Encounter Details Date Type Department Care Team (Late st Contact Info) Description 11/06/2011 Clinical Note [facility] Division of Dentistry [address] [place] [phone] Provider, Historical Social History Tobacco Use Types Packs/Day Years Used Date Smoking Tobacco: Never Assessed Sex and Gender Information Value Date Recorded Sex Assigned at Not on file Legal Sex Male 5:16 AM EST Gender Identity Not on file Sexual Orientation Not on file documented as of this encounter Progress Notes * Provider, Nichole - 11/06/2011 12:00 AM EDT I was present for the procedure. Reviewed the resident note and concurred.~Note authored by: Joao Thompson ([email or web address]) documented in this encounter Plan of Treatment Upcoming Encounters Date Type Department Care Team (Late st Contact Info) Description 03/31/2025 10:00 AM EDT Appointment [facility] Division of Audiology [address] [place] [phone] Audiology, [facility] Tania Escobar, Kayden Discharge Disposition: Home or Self Care documented as of this encounter Visit Diagnoses Not on filedocumented in this encounter Additional Health Concerns Infection Onset Date Last Indicated Resolved Time COVID-19 Rule Out 02/14/2021 02/14/2021 02/14/2021 11:41 AM EDT documented as of this encounter Care Teams Rotating Equipment Engineer Relationship Specialty Start Date End Date Rock Bustos M.D. [address] [place] [address] PCP - General External Family Practice 03/02/16 documented as of this encounter
--- OUTSIDE RECORDS SUMMARY | 2025-03-22 11:50 | XMS_ITS | Clinical Summary ---
Author Organization [facility] Address [address], [address] [place] [address] Care Team Providers Care Supervising Producer Name Role Phone Unavailable Primary Care Provider Unavailabl e Allergies Active Allergy Reactions Criticality Noted Date Comments Penicillins Hives 04/03/2013 Medications carBAMazepine (TEGRETOL) 100 MG/5ML suspension Take by mouth 4 times daily. Active Nebulizer MISC by Does not apply route Active Social History Tobacco Use Types Packs/Day Years Used Date Smoking Tobacco: Never Tobacco Cessation:Counseling Given: No Alcohol Use Standard Drinks/Week Comments No 0 (1 standard drink = 0.6 oz pur e alcohol) Sex and Gender Information Value Date Recorded Sex Assigned at Not on file Legal Sex Male 1:22 PM EST Gender Identity Not on file Sexual Orientation Not on file Last Filed Vital Signs Vital Sign Reading Time Taken Comments Blood Pressure 111/75 04/16/2017 2:36 PM EDT Pulse 97 04/16/2017 2:36 PM EDT Temperature 36.6 C (97.8 F) 04/16/2017 2:36 PM EDT Respiratory Rate 18 04/16/2017 2:36 PM EDT Oxygen Saturation 99% 04/16/2017 2:36 PM EDT Inhaled Oxygen Concentration - - Weight 31.3 kg (69 lb) 04/16/2017 2:36 PM EDT Height 134.6 cm (4' 5 ) 04/16/2017 2:26 PM EDT Body Mass Index 17.27 04/16/2017 2:26 PM EDT Plan of Treatment Not on file
--- OUTSIDE RECORDS SUMMARY | 2025-03-22 11:50 | XMS_ITS | Encounter Summary ---
Author Organization [facility] Address [address] [place] [address] Care Team Providers Care Administrative Office Manager Name Role Phone Rock Bustos M.D. Primary Care Provider [phone] Encounter Details Date Type Department Care Team (Late st Contact Info) Description 05/16/2012 Clinical Note [facility] Division of Dentistry [address] [place] [phone] Provider, Historical Social History Tobacco Use Types Packs/Day Years Used Date Smoking Tobacco: Never Assessed Sex and Gender Information Value Date Recorded Sex Assigned at Not on file Legal Sex Male 5:16 AM EST Gender Identity Not on file Sexual Orientation Not on file documented as of this encounter Progress Notes * Provider, Nichole - 05/16/2012 12:00 AM EDT Dentist/Residential Leasing Manager/Hygienist verified correct patient. ~~:__[id number] ~~Pain?: Yes____ No _x___~Pain Score for visit: ~Pain Scale used: (choose one: Oucher___, Visual Analog Scale___, FLACC___.)~~Note authored by: Heidy Schafer ([email or web address]) documented in this encounter Plan of Treatment Upcoming Encounters Date Type Department Care Team (Late st Contact Info) Description 03/31/2025 10:00 AM EDT Appointment [facility] Division of Audiology [address] [place] [phone] Audiology, [facility] Tania Escobar, Kayden Discharge Disposition: Home or Self Care documented as of this encounter Visit Diagnoses Not on filedocumented in this encounter Additional Health Concerns Infection Onset Date Last Indicated Resolved Time COVID-19 Rule Out 02/14/2021 02/14/2021 02/14/2021 11:41 AM EDT documented as of this encounter Care Teams Administrative Office Manager Relationship Specialty Start Date End Date Rock Bustos M.D. [address] [place], [place] [phone] PCP - General External Family Practice 03/02/16 documented as of this encounter
== END 2025-03-18 23:59 | disposition home or self-care (01) ==
LOC: LAB.DROPOF 03-22 11:46
PROVIDERS: PCP Family Medicine; Visit Provider Family Medicine
DX: Z11.59 Encounter for screening for other viral diseases (principal)
CPT/HCPCS: 80074; 87340; 87389